=== PATIENT | female | born 1960 | race Two or more races ===

== ENCOUNTER 2020-04-03 13:29 | Inpatient (IN) | payer MEDICAID ==
[~2020-04-03] VITALS: Ht 149.9 cm; Wt 60.4 kg
--- NOTE | 2020-04-03 13:35 | Emergency Room Report ---
History of Present Illness General Chief Complaint: Chest Pain Source: Patient, EMS Present Illness HPI Patient is a poor historian brought in by paramedics. Apparently patient had not been feeling well has had chest discomfort for the last week or so. Patient also was noted to have an elevated glucose. Patient does not have any known past medical history. Symptoms noted to be moderate to severe. Patient denies any fever cough runny nose sore throat. No other modifying factors. No other associated signs and symptoms. No other complaints were noted. Allergies: Coded Allergies: No Known Allergies (Unverified , 04/03/20) COVID-19 Screening Contact w/high risk pt: No Experienced COVID-19 symptoms?: No COVID-19 Testing performed CUSTOMS GUARD: No Patient History Past Medical History: none Past Surgical History: none Pertinent Family History: none Social History: Denies: smoking, alcohol use, drug use Reviewed Nursing Documentation: PMH: Agreed; PSxH: Agreed Nursing Documentation-PMH Past Medical History: No Stated History Review of Systems All Other Systems: negative except mentioned in HPI Physical Exam Vital Signs Date Time Temp Pulse Resp B/P (MAP) Pulse Ox O2 Delivery O2 Flow Rate FiO2 04/03/20 13:20 98.8 123 20 174/97 (122) 98 Room Air Sp02 EP Interpretation: reviewed, normal General Appearance: normal inspection, well appearing, no apparent distress, alert Head: atraumatic Eyes: bilateral eye normal inspection ENT: normal ENT inspection, hearing grossly normal, normal voice Neck: normal inspection, full range of motion, supple, no bony tend Respiratory: normal inspection, lungs clear, normal breath sounds, no respiratory distress, no retraction, no wheezing Cardiovascular #1: regular rate, rhythm, no edema Gastrointestinal: normal inspection, normal bowel sounds, non tender, soft, no guarding, no hernia Genitourinary: no CVA tenderness Musculoskeletal: normal inspection, back normal, normal range of motion Neurologic: alert, responsive, speech normal, normal inspection Psychiatric: normal inspection, judgement/insight normal, mood/affect normal Medical Decision Making Diagnostic Impression: Primary Impression: Chest pain Additional Impression: Hyperglycemia ER Course Patient presents emergency department today with chest pain hyperglycemia. Differential considerations include acute coronary syndrome, DKA, electrolyte abnormality just name few. Given the severity of the patient's presentation I felt this is a highly complex patient. This patient required extensive workup. I will sign the case to oncoming physician Dr. Graham. EKG Diagnostic Results Rate: normal Rhythm: NSR ST Segments: no acute changes Rhythm Strip Diag. Results EP Interpretation: yes Rate: 102 Rhythm: NSR, no PVC's, no ectopy Last Vital Signs Date Time Temp Pulse Resp B/P (MAP) Pulse Ox O2 Delivery O2 Flow Rate FiO2 04/03/20 13:20 98.8 123 20 174/97 (122) 98 Room Air Allen Jack MD Apr 03, 2020 13:35
[2020-04-03 13:56] VITALS: BP 174/97
--- NOTE | 2020-04-03 14:09 | NUR ---
ED Nurse Note: Patient was BIBA from [facility] c/o left sided chest pain x [address] in 120s. Per stamp analyst 4 nitro SL and 325 mg aspirin PO given by LAFD. Patient presented calm sleepy, AAO x4, VS at this time.
--- NOTE | 2020-04-03 14:12 | NUR ---
ED Nurse Note: Patient presented with IV line on left forearm 20 ga, blood collected sent to lab
[2020-04-03 14:44] LABS: HEMATOCRIT 44.2 % (37.0-47.0); HEMOGLOBIN 14.5 G/DL (12.0-16.0); MEAN CORPUSCULAR VOLUME 88 FL (80-99); PLATELET COUNT 189 K/UL (150-450); RED BLOOD COUNT 5.03 M/UL (4.20-5.40); RED CELL DISTRIBUTION WIDTH 13.2 % (11.6-14.8); WHITE BLOOD COUNT 8.8 K/UL (4.8-10.8)
--- NOTE | 2020-04-03 14:56 | Diagnostic Imaging Report ---
Indication: Cough Technique: One view of the chest Comparison: none Findings: Lungs and pleural spaces are clear. Heart size is normal. Impression: No acute process
[2020-04-03 15:09] LABS: CALCIUM 9.2 MG/DL (8.5-10.1); CREATININE 1.4 MG/DL (0.55-1.30)
[2020-04-03 15:17] LABS: ALBUMIN 3.3 G/DL (3.4-5.0); ALBUMIN/GLOBULIN RATIO 1.2 (1.0-2.7); BILIRUBIN,TOTAL 0.4 MG/DL (0.2-1.0)
[2020-04-03] MEDS ORDERED: Insulin Reg 100 units Premix 100 ML IVPB SCH ×2 (16:00→17:00)
--- NOTE | 2020-04-03 16:04 | NUR ---
ED Nurse Note: Patient's BS 1069, ER MD aware fluids and Regular Insulin drip started. Patient appear lethargic, AAO x4, aii other VSS at this time.
[2020-04-03 16:06] VITALS: BP 135/80
[2020-04-03] MEDS ORDERED: Vancomycin 1 GM in NS 275 ML IVPB ONE (16:30)
[2020-04-03] MEDS ORDERED: Omnipaque-300 100ml vial INJ PRN (16:45)
[2020-04-03] MEDS ORDERED: LORazepam Inj 2mg/ml 1ml IV PRN (17:00)
[2020-04-03] MEDS ORDERED: Insulin Human Regular 100units/ml 3ml IV PRN ×2 (17:00)
[2020-04-03] MEDS ORDERED: Miralax 17gm pkt ORAL PRN (17:00)
[2020-04-03] MEDS ORDERED: Nitroglycerin Subl 0.4mg tab SL PRN (17:00)
[2020-04-03] MEDS ORDERED: Morphine Sulfate 4mg/ml Inj (IV USE ONLY) IVP PRN (17:00)
[2020-04-03] MEDS ORDERED: Insulin Rate Change 1 Each MISC PRN (17:00)
[2020-04-03] MEDS ORDERED: Albuterol/Ipratropium 3ml neb HHN PRN (17:00)
[2020-04-03 17:10] LABS: APPEARANCE,URINE CLEAR; BILIRUBIN, URINE NEGATIVE (NEGATIVE); COLOR,URINE PALE YELLOW; GLUCOSE, URINE (UA) 4+ (NEGATIVE); KETONES,URINE NEGATIVE (NEGATIVE); LEUKOCYTE ESTERASE ,URINE NEGATIVE (NEGATIVE); NITRITE,URINE NEGATIVE (NEGATIVE); PH,URINE 6.5 (4.5-8.0); PROTEIN,URINE NEGATIVE (NEGATIVE); UROBILINOGEN,URINE NORMAL MG/DL (0.0-1.0)
--- NOTE | 2020-04-03 17:15 | NUR ---
ED Nurse Note: BS 375. ED MD aware. He said to keep insulin @ 6 u/hr and recheck BS @ 9285
--- NOTE | 2020-04-03 17:30 | NUR ---
ED Nurse Note: BS 301. Per ED MD, keep insulin @ 6 u/hr
--- NOTE | 2020-04-03 17:34 | Diagnostic Imaging Report ---
EXAM: CT Abdomen and Pelvis With Intravenous Contrast CLINICAL HISTORY: Pelvic abscess. TECHNIQUE: Axial computed tomography images of the abdomen and pelvis with intravenous contrast. CTDI is 7.6 mGy and DLP is 293.4 mGy-cm. One or more of the following dose reduction techniques were used: automated exposure control, adjustment of the mA and/or kV according to patient size, use of iterative reconstruction technique. COMPARISON: No previous study. FINDINGS: Lung bases: Patchy airspace disease at the lung bases. Differential etiologies include atypical pneumonias versus atelectasis. Heart: Heart is top normal in size. Mediastinum: Small hiatal hernia probable distal esophagitis. ABDOMEN: Liver: Diffuse fatty infiltration of the liver is noted. The liver and the spleen enhance uniformly. Gallbladder and bile ducts: See below. Pancreas: See below. Spleen: See above. Adrenals: The adrenal glands, the head, body, tail of the pancreas and the gallbladder are unremarkable. Kidneys and ureters: Both kidneys are shown to excrete contrast bilaterally without renal calculus or hydronephrosis per Nonspecific stranding about the perinephric spaces. A 1 cm complex cyst upper pole region of the right kidney which requires further workup for evaluation. Stomach and bowel: The stomach is underdistended. Moderate quantity of stool throughout the colon. No evidence of bowel obstruction. The rectosigmoid is distended with stool measuring 10.6 x 11.8 x 8.2 cm compatible with fecal impaction. No mucosal thickening. PELVIS: Appendix: Appendix is seen on coronal images 20 and 21 and is unremarkable. Bladder: The bladder is distended. Reproductive: The uterus and adnexal regions are unremarkable. Uterus is unremarkable. ABDOMEN and PELVIS: Intraperitoneal space: Unremarkable. No free air. No significant fluid collection. Bones/joints: Acute nondisplaced fracture of the posterior lateral aspect of the left 10th rib. Moderate degenerative disc disease of the spinal:. Moderate to severe osteoarthritic changes about the sacroiliac joints. Alignment of the visualized track the lumbar spine is unremarkable. Sacrum and coccyx are grossly unremarkable. Soft tissues: Ischiorectal fat is clean. Inflammatory changes are noted about the left buttocks region, partially visualized, possibly on the basis of cellulitis. Vasculature: Flow is demonstrated within the celiac, SMA, the renal arteries, and FAVIAN. Atherosclerotic disease of the abdominal aorta without change in caliber. No abdominal aortic aneurysm. Lymph nodes: Unremarkable. No enlarged lymph nodes. Other findings: Probable areas of scarring. No compression deformities. IMPRESSION: 1. Small hiatal hernia probable distal esophagitis. 2. Atypical pneumonia such as Covid-19 pneumonia cannot be excluded. 3. The gallbladder is unremarkable. 4. Nonspecific stranding about the perinephric spaces. 5. Complex cyst upper pole region of the right kidney. Magnetic resonance imaging of the abdomen is advised for further characterization. 6. The appendix is unremarkable. 7. Moderate quantity of stool throughout the colon. 8. No evidence of bowel obstruction. 9. Findings compatible with fecal impaction. 10. Possible cellulitis about the left buttocks region. Clinical correlation is advised. <MYCVCSECTION> Communications: 04/03/20 17:35 Call Doctor Regarding Above results, called Dr. Graham on 04/03 17:35 (-07:00)
[2020-04-03 17:35] VITALS: BP 132/80
--- NOTE | 2020-04-03 18:00 | NUR ---
ED Nurse Note: BS 272. ED MD aware. He said to stop insulin drip. Drip on hold
[2020-04-03 18:43] VITALS: BP 138/80
--- NOTE | 2020-04-03 18:43 | NUR ---
ED Nurse Note: Patient was upgraded to TELE unit, pt's BS 207, no drip
--- NOTE | 2020-04-03 19:05 | NUR ---
HAND-OFF: Report given to JEREMY Urban.
--- NOTE | 2020-04-03 19:33 | NUR ---
ED Nurse Note: Spoke to laboratory, informed them that drug urine screen hasn't been run, informed that they will run it now.
--- NOTE | 2020-04-03 20:36 | NUR ---
ED Nurse Note: Report given to JEREMY Lawson.
--- NOTE | 2020-04-03 21:00 | NUR ---
TRANSFER TO FLOOR: Patient transferred to telemetry as ordered, per ERMD. Report given to JEREMY Lawson. Patient transported via gurney on ACLS protocol in stable condition accompanied by RN and medical office technology instructor.
[2020-04-03 21:15] VITALS: BP 117/66
--- NOTE | 2020-04-03 21:15 | NUR ---
NURSE NOTES: Pt received lying in supine position. Pt is alert x2-3, accurately said her name and date of and knows she is in [place] at a hospital. She thinks Morteza is president and said that she is here for a heart problem. It was reported that she had chest pain x 10 days but she was uncertain how long upper left chest. Pt is lying in bed with eyes closed and somewhat tired. She has some sores on her feet bilaterally, redness on sacrum and R buttocks. will upload plans of care to include protocol for wounds and wound consult per protocol. Bed is locked in lowest position, side rails x2, bed laarm on and call light within reach, will continue to monitor. will resume blood sugar checks since last BG was done in ED.
[2020-04-03] MEDS: Heparin 5000 units/ml inj SUBQ SCH (22:26)
[2020-04-04] VITALS: BP 110/66
[2020-04-04] MEDS ORDERED: NovoLOG Insulin Flexpen SUBQ SCH
--- NOTE | 2020-04-04 00:21 | NUR ---
NURSE NOTES: Dr Ly said to change sliding scale insulin to administer q 6 hours at midnight
[2020-04-04] MEDS: NovoLOG Insulin Flexpen SUBQ SCH ×6 (00:39→21:04)
[2020-04-04 04:00] VITALS: BP 105/68
[2020-04-04 06:58] LABS: INR 0.9 (0.9-1.1)
[2020-04-04 07:02] LABS: ANION GAP 9 mmol/L (5-15); BLOOD UREA NITROGEN 6 mg/dL (7-18); CALCIUM 8.4 MG/DL (8.5-10.1); CARBON DIOXIDE 25 MMOL/L (21-32); CHLORIDE 110 MMOL/L (98-107); CREATININE 0.5 MG/DL (0.55-1.30); POTASSIUM 3.6 MMOL/L (3.5-5.1); SODIUM 143 MMOL/L (136-145)
[2020-04-04 07:12] LABS: ALANINE AMINOTRANSFERASE 13 U/L (12-78); ALBUMIN 2.4 G/DL (3.4-5.0); ALKALINE PHOSPHATASE 97 U/L (46-116); ASPARTATE AMINO TRANSFERASE 13 U/L (15-37); BILIRUBIN,DIRECT < 0.1 MG/DL (0.0-0.3); BILIRUBIN,TOTAL 0.3 MG/DL (0.2-1.0); PHOSPHORUS 2.3 MG/DL (2.5-4.9)
[2020-04-04 08:00] VITALS: BP 118/68
--- NOTE | 2020-04-04 08:24 | NUR ---
NURSE HAND-OFF REPORT: Important Events on Shift: BG stabilized, changed to q 6 hours, specialists to see pt Patient Status: [stable, confused Diet: [npo] Pending Orders: [pt ptt hepatic function panel] Pending Results/Labs:[labs am] Pending MD notification: Latest Vital Signs: Temperature 99.0 , Pulse 58 , B/P 105 /68 , Respiratory Rate 18 , O2 SAT 96 , Room Air, O2 Flow Rate . Vital Sign Comment: [] EKG Rhythm: Sinus Bradycardia Rhythm change?: Y Notified?: N -Dr Malachi Saunders MD Response: No New Orders Received Latest Grajeda Fall Score: 45 Fall Risk: High Risk Safety Measures: Call light Within Reach, Bed Alarm Zone 1, Side Rails Side Rails x2, Bed position Low and Locked. Fall Precautions: Yellow Socks Yellow Gown Door Sign Patient Fall Education Report given to JEREMY Magana].
[2020-04-04] MEDS: Heparin 5000 units/ml inj SUBQ SCH ×2 (09:48→20:58)
--- NOTE | 2020-04-04 11:40 | NUR ---
NURSE NOTES: Skin/Wound assessment:Groin area has two abscess wounds.Distal abscess wound 11.3x1.4x0.2 with dry black eschar wound bed ,moist white edges with small amount serosanguineous drainage red induration kristal wound skin.Proximal abscess wound dry black eschar, moist edges with small amount serosanguineous drainage periwound also red induration noted.Both wounds dressed with Thera honey and Optifoam.Recommend wound consult spoke to RN taking care of the patient.All bony prominences skin intact.
--- NOTE | 2020-04-04 11:40 | Consultation ---
History of Present Illness General Date patient seen: Apr 04, 2020 Chief Complaint: Chest Pain Present Illness HPI 60 year old female with hhx of homelessness brought in by paramedics with CC of chest discomfort for the last week or so. Patient also was noted to have an elevated glucose. Patient does not have any known past medical history. Her Glucose was >1000 in ER. she is admitted for further management. Allergies: Coded Allergies: No Known Allergies (Unverified , 04/03/20) Medication History No Active Prescriptions or Reported Meds Patient History Healthcare decision maker Resuscitation status Advanced Directive on File Past Medical/Surgical History Past Medical/Surgical History: (1) Homelessness Review of Systems All Other Systems: negative except mentioned in HPI Physical Exam General Appearance: WD/WN, no apparent distress Lines, tubes and drains: peripheral HEENT: normocephalic, anicteric Neck: non-tender, normal alignment Respiratory/Chest: chest wall non-tender, lungs clear Cardiovascular/Chest: normal peripheral pulses Abdomen: normal bowel sounds Last 24 Hour Vital Signs Date Time Temp Pulse Resp B/P (MAP) Pulse Ox O2 Delivery O2 Flow Rate FiO2 04/04/20 08:00 97.5 56 18 118/68 (85) 95 04/04/20 04:00 61 04/04/20 04:00 99.0 58 18 105/68 (80) 96 04/04/20 00:00 54 04/04/20 00:00 99.0 56 18 110/66 (81) 95 04/03/20 22:09 Room Air 04/03/20 21:15 61 04/03/20 21:15 97.5 59 19 117/66 (83) 95 04/03/20 21:00 98.8 69 20 119/79 99 Room Air 04/03/20 18:43 98.8 67 18 138/80 98 Room Air 04/03/20 17:35 98.8 64 20 132/80 98 Room Air 04/03/20 16:06 98.8 69 20 135/80 98 Room Air 04/03/20 13:56 98.8 78 20 174/97 98 Room Air 04/03/20 13:56 123 20 Room Air 04/03/20 13:20 98.8 123 20 174/97 (122) 98 Room Air Intake and Output 04/03/20 04/04/20 19:00 07:00 Intake Total 0 ml Output Total 500 ml Balance -500 ml 0 ml Intake Oral 0 ml Output Urine Total 500 ml # Voids 1 Laboratory Tests Test 04/03/20 13:35 04/03/20 16:30 04/03/20 16:32 04/03/20 17:09 White Blood Count 8.8 K/UL (4.8-10.8) Red Blood Count 5.03 M/UL (4.20-5.40) Hemoglobin 14.5 G/DL (12.0-16.0) Hematocrit 44.2 % (37.0-47.0) Mean Corpuscular Volume 88 FL (80-99) Mean Corpuscular Hemoglobin 28.8 PG (27.0-31.0) Mean Corpuscular Hemoglobin Concent 32.8 G/DL (32.0-36.0) Red Cell Distribution Width 13.2 % (11.6-14.8) Platelet Count 189 K/UL (150-450) Mean Platelet Volume 8.9 FL (6.5-10.1) Neutrophils (%) (Auto) % (45.0-75.0) Lymphocytes (%) (Auto) % (20.0-45.0) Monocytes (%) (Auto) % (1.0-10.0) Eosinophils (%) (Auto) % (0.0-3.0) Basophils (%) (Auto) % (0.0-2.0) Differential Total Cells Counted 100 Neutrophils % (Manual) 88 % (45-75) H Lymphocytes % (Manual) 6 % (20-45) L Monocytes % (Manual) 6 % (1-10) Eosinophils % (Manual) 0 % (0-3) Basophils % (Manual) 0 % (0-2) Band Neutrophils 0 % (0-8) Platelet Estimate Adequate Platelet Morphology Normal Red Blood Cell Morphology Normal Sodium Level 128 MMOL/L (136-145) L Potassium Level 5.0 MMOL/L (3.5-5.1) Chloride Level 92 MMOL/L (98-107) L Carbon Dioxide Level 21 MMOL/L (21-32) Anion Gap 15 mmol/L (5-15) Blood Urea Nitrogen 13 mg/dL (7-18) Creatinine 1.4 MG/DL (0.55-1.30) H Estimat Glomerular Filtration Rate 38.5 mL/min (>60) Glucose Level 1069 MG/DL (74-106) *H Osmolality 327 mOsm/kg (297-317) H Calcium Level 9.2 MG/DL (8.5-10.1) Total Bilirubin 0.4 MG/DL (0.2-1.0) Aspartate Amino Transf (AST/SGOT) 12 U/L (15-37) L Alanine Aminotransferase (ALT/SGPT) 16 U/L (12-78) Alkaline Phosphatase 145 U/L (46-116) H Troponin I 0.000 ng/mL (0.000-0.056) Pro-B-Type Natriuretic Peptide 57 pg/mL (0-125) Total Protein 6.1 G/DL (6.4-8.2) L Albumin 3.3 G/DL (3.4-5.0) L Globulin 2.8 g/dL Albumin/Globulin Ratio 1.2 (1.0-2.7) Lipase 244 U/L (73-393) Acetone Level Negative (NEGATIVE) Urine Color Pale yellow Urine Appearance Clear Urine pH 6.5 (4.5-8.0) Urine Specific [place] 1.010 (1.005-1.035) Urine Protein Negative (NEGATIVE) Urine Glucose (UA) 4+ (NEGATIVE) H Urine Ketones Negative (NEGATIVE) Urine Blood Negative (NEGATIVE) Urine Nitrite Negative (NEGATIVE) Urine Bilirubin Negative (NEGATIVE) Urine Urobilinogen Normal MG/DL (0.0-1.0) Urine Leukocyte Esterase Negative (NEGATIVE) Urine Opiates Screen Negative (NEGATIVE) Urine Barbiturates Screen Negative (NEGATIVE) Phencyclidine (PCP) Screen Negative (NEGATIVE) Urine Amphetamines Screen Negative (NEGATIVE) Urine Benzodiazepines Screen Negative (NEGATIVE) Urine Cocaine Screen Negative (NEGATIVE) Urine Marijuana (THC) Screen Negative (NEGATIVE) POC Whole Blood Glucose 375 MG/DL (74-106) H Test 04/03/20 17:30 04/03/20 17:44 04/03/20 18:02 04/03/20 19:18 POC Whole Blood Glucose 301 MG/DL (74-106) H 227 MG/DL (74-106) H 196 MG/DL (74-106) H Venous Blood pH 7.300 Venous Blood Partial Pressure CO2 48.7 Venous Blood Partial Pressure O2 33.1 Venous Blood HCO3 23.4 Venous Blood Total Carbon Dioxide 48.7 Venous Blood Base Excess -3.4 Venous Blood Carboxyhemoglobin 1.8 % (0.5-1.5) H Methemoglobin 0.2 Test 04/03/20 22:03 04/04/20 00:24 04/04/20 05:50 04/04/20 06:12 POC Whole Blood Glucose 247 MG/DL (74-106) H 292 MG/DL (74-106) H 139 MG/DL (74-106) H Prothrombin Time 10.3 SEC (9.30-11.50) Prothromb Time International Ratio 0.9 (0.9-1.1) Activated Partial Thromboplast Time 24 SEC (23-33) Sodium Level 143 MMOL/L (136-145) # Potassium Level 3.6 MMOL/L (3.5-5.1) Chloride Level 110 MMOL/L (98-107) H Carbon Dioxide Level 25 MMOL/L (21-32) Anion Gap 9 mmol/L (5-15) Blood Urea Nitrogen 6 mg/dL (7-18) L Creatinine 0.5 MG/DL (0.55-1.30) #L Estimat Glomerular Filtration Rate > 60 mL/min (>60) Glucose Level 153 MG/DL (74-106) #H Calcium Level 8.4 MG/DL (8.5-10.1) L Phosphorus Level 2.3 MG/DL (2.5-4.9) L Total Bilirubin 0.3 MG/DL (0.2-1.0) Direct Bilirubin < 0.1 MG/DL (0.0-0.3) Aspartate Amino Transf (AST/SGOT) 13 U/L (15-37) L Alanine Aminotransferase (ALT/SGPT) 13 U/L (12-78) Alkaline Phosphatase 97 U/L (46-116) Total Protein 4.6 G/DL (6.4-8.2) L Albumin 2.4 G/DL (3.4-5.0) L Test 04/04/20 09:03 POC Whole Blood Glucose Pending Microbiology Date/Time Source Procedure Growth Status 04/03/20 14:34 Nasopharynx SARS-CoV-2 RdRp Gene Assay - Final Complete Height (Feet): 4 Height (Inches): 11.00 Weight (Pounds): 122 Medications Current Medications Medications (Trade) Dose Ordered Sig/Nathan Route PRN Reason Start Time Stop Time Status Last Admin Dose Admin Acetaminophen (Tylenol) 650 mg Q4H PRN ORAL Fever 04/03/20 17:00 05/03/20 16:59 Albuterol/ Ipratropium (Albuterol/ Ipratropium) 3 ml Q4H PRN HHN Shortness of Breath 04/03/20 17:00 04/08/20 16:59 Dextrose (Dextrose 50%) 25 ml Q30M PRN IV HYPOGLYCEMIA 04/03/20 17:00 07/02/20 16:59 Dextrose (Dextrose 50%) 50 ml Q30M PRN IV Hypoglycemia 04/03/20 17:00 07/02/20 16:59 Heparin Sodium (Porcine) (Heparin 5000 units/ml) 5,000 units EVERY 12 HOURS SUBQ 04/03/20 21:00 05/18/20 20:59 04/04/20 09:48 Insulin Aspart (NovoLOG) Q4HR SUBQ 04/04/20 00:00 07/03/20 00:00 04/04/20 00:39 Iohexol (OMNIPAQUE-300 100ml) 100 ml NOW PRN INJ Radiology Procedure 04/03/20 16:45 04/05/20 16:44 Lorazepam (Ativan 2mg/ml 1ml) 2 mg Q2H PRN IV agitation 04/03/20 17:00 04/10/20 16:59 Morphine Sulfate (Morphine Sulfate) 4 mg Q4H PRN IVP Severe Pain (Pain Scale 7-10) 04/03/20 17:00 04/10/20 16:59 Nitroglycerin (Ntg) 0.4 mg Q5M PRN SL Prn Chest Pain 04/03/20 17:00 05/03/20 16:59 Ondansetron HCl (Zofran) 4 mg Q6H PRN IVP Nausea & Vomiting 04/03/20 17:00 05/03/20 16:59 Polyethylene Glycol (Miralax) 17 gm DAILYPRN PRN ORAL Constipation 04/03/20 17:00 05/03/20 16:59 Sodium Chloride 1,000 ml @ 150 mls/hr Q6H40M IV 04/03/20 18:00 05/03/20 17:59 04/04/20 06:54 Assessment/Plan Problem List: (1) Hyperglycemia ICD Codes: R73.9 - Hyperglycemia, unspecified SNOMED: 20410598 (2) Chest pain ICD Codes: R07.9 - Chest pain, unspecified SNOMED: 38192021 (3) Homelessness ICD Codes: Z59.0 - Homelessness SNOMED: 49178482 Assessment/Plan: iv fluids insulin coverage echo troponin cardio and endo to see social service for homelessness. Angeline Saunders MD Apr 04, 2020 11:40
[2020-04-04 12:00] VITALS: BP 126/73
--- NOTE | 2020-04-04 12:10 | Consultation ---
History of Present Illness General Date patient seen: Apr 04, 2020 Reason for Hospitalization: Chest Pain Present Illness HPI This is a 50-year-old female who is unsure of her medical history that presents with worsening weakness and discomfort for some time now. In emergency departm ent identified to have abnormal labs DKA and cellulitis. Admitted for the care management. Surgery called to eval and assist with care. Patient identified to have cellulitis with wounds in the pelvic region. Unsure how long they have been there. No nausea vomiting fever chills. Imaging reviewed CT reviewed labs reviewed. Fecal impaction constipation. Allergies: Coded Allergies: No Known Allergies (Unverified , 04/03/20) COVID-19 Screening Contact w/high risk pt: No Experienced COVID-19 symptoms?: No Medication History No Active Prescriptions or Reported Meds Patient History Limited by: medical condition History Provided By: Patient, Medical Record, PMD Healthcare decision maker Resuscitation status Advanced Directive on File Past Medical/Surgical History Past Medical/Surgical History: (1) Chest pain (2) Hyperglycemia (3) History of diabetes mellitus Review of Systems Review of Symptoms General ROS: no weight loss or fever Psychological ROS: no depression or mood changes, no memory loss Ophthalmic ROS: no visual changes or eye irritation ENT ROS: no nasal congestion, hearing loss, dizziness Allergy and Immunology ROS: no allergic symptoms or urticaria Hematological and Lymphatic ROS: no swollen glands, unusual bleeding or bruising Endocrine ROS: no polyuria, polydipsia, weight changes, temperature intolerance Respiratory ROS: no cough, shortness of breath, or wheezing Cardiovascular ROS: no chest pain or dyspnea on exertion Gastrointestinal ROS: denies abdominal pain, bright red blood in stool. Musculoskeletal ROS: no myalgias or arthralgias Neurological ROS: no TIA or stroke symptoms Dermatological ROS: no new or changing skin lesions, rashes or pruritis Physical Exam Physical Exam General appearance: alert, cooperative, no distress, appears stated age Head: Normocephalic, without obvious abnormality, atraumatic Eyes: conjunctivae/corneas clear. PERRL, EOM's intact. Fundi benign Throat: Lips, mucosa, and tongue normal. Teeth and gums normal Neck: supple, symmetrical, trachea midline, no adenopathy, thyroid: not enlarged, symmetric, no tenderness/mass/nodules, no carotid bruit and no JVD Lungs: clear to auscultation bilaterally Heart: regular rate and rhythm, S1, S2 normal, no murmur, click, rub or gallop Abdomen: soft, non-tender. Bowel sounds normal. No masses, no organomegaly cellulitis in the pelvic region Extremities: extremities normal, atraumatic, no cyanosis or edema Pulses: 2+ and symmetric Skin: Skin color, texture, turgor normal. No rashes or lesions Neurologic: Grossly normal Last 24 Hour Vital Signs Date Time Temp Pulse Resp B/P (MAP) Pulse Ox O2 Delivery O2 Flow Rate FiO2 04/04/20 08:00 97.5 56 18 118/68 (85) 95 04/04/20 08:00 58 04/04/20 04:00 61 04/04/20 04:00 99.0 58 18 105/68 (80) 96 04/04/20 00:00 54 04/04/20 00:00 99.0 56 18 110/66 (81) 95 04/03/20 22:09 Room Air 04/03/20 21:15 61 04/03/20 21:15 97.5 59 19 117/66 (83) 95 04/03/20 21:00 98.8 69 20 119/79 99 Room Air 04/03/20 18:43 98.8 67 18 138/80 98 Room Air 04/03/20 17:35 98.8 64 20 132/80 98 Room Air 04/03/20 16:06 98.8 69 20 135/80 98 Room Air 04/03/20 13:56 98.8 78 20 174/97 98 Room Air 04/03/20 13:56 123 20 Room Air 04/03/20 13:20 98.8 123 20 174/97 (122) 98 Room Air Intake and Output 04/03/20 04/04/20 19:00 07:00 Intake Total 0 ml Output Total 500 ml Balance -500 ml 0 ml Intake Oral 0 ml Output Urine Total 500 ml # Voids 1 Laboratory Tests Test 04/03/20 13:35 04/03/20 16:30 04/03/20 16:32 04/03/20 17:09 White Blood Count 8.8 K/UL (4.8-10.8) Red Blood Count 5.03 M/UL (4.20-5.40) Hemoglobin 14.5 G/DL (12.0-16.0) Hematocrit 44.2 % (37.0-47.0) Mean Corpuscular Volume 88 FL (80-99) Mean Corpuscular Hemoglobin 28.8 PG (27.0-31.0) Mean Corpuscular Hemoglobin Concent 32.8 G/DL (32.0-36.0) Red Cell Distribution Width 13.2 % (11.6-14.8) Platelet Count 189 K/UL (150-450) Mean Platelet Volume 8.9 FL (6.5-10.1) Neutrophils (%) (Auto) % (45.0-75.0) Lymphocytes (%) (Auto) % (20.0-45.0) Monocytes (%) (Auto) % (1.0-10.0) Eosinophils (%) (Auto) % (0.0-3.0) Basophils (%) (Auto) % (0.0-2.0) Differential Total Cells Counted 100 Neutrophils % (Manual) 88 % (45-75) H Lymphocytes % (Manual) 6 % (20-45) L Monocytes % (Manual) 6 % (1-10) Eosinophils % (Manual) 0 % (0-3) Basophils % (Manual) 0 % (0-2) Band Neutrophils 0 % (0-8) Platelet Estimate Adequate Platelet Morphology Normal Red Blood Cell Morphology Normal Sodium Level 128 MMOL/L (136-145) L Potassium Level 5.0 MMOL/L (3.5-5.1) Chloride Level 92 MMOL/L (98-107) L Carbon Dioxide Level 21 MMOL/L (21-32) Anion Gap 15 mmol/L (5-15) Blood Urea Nitrogen 13 mg/dL (7-18) Creatinine 1.4 MG/DL (0.55-1.30) H Estimat Glomerular Filtration Rate 38.5 mL/min (>60) Glucose Level 1069 MG/DL (74-106) *H Osmolality 327 mOsm/kg (297-317) H Calcium Level 9.2 MG/DL (8.5-10.1) Total Bilirubin 0.4 MG/DL (0.2-1.0) Aspartate Amino Transf (AST/SGOT) 12 U/L (15-37) L Alanine Aminotransferase (ALT/SGPT) 16 U/L (12-78) Alkaline Phosphatase 145 U/L (46-116) H Troponin I 0.000 ng/mL (0.000-0.056) Pro-B-Type Natriuretic Peptide 57 pg/mL (0-125) Total Protein 6.1 G/DL (6.4-8.2) L Albumin 3.3 G/DL (3.4-5.0) L Globulin 2.8 g/dL Albumin/Globulin Ratio 1.2 (1.0-2.7) Lipase 244 U/L (73-393) Acetone Level Negative (NEGATIVE) Urine Color Pale yellow Urine Appearance Clear Urine pH 6.5 (4.5-8.0) Urine Specific [place] 1.010 (1.005-1.035) Urine Protein Negative (NEGATIVE) Urine Glucose (UA) 4+ (NEGATIVE) H Urine Ketones Negative (NEGATIVE) Urine Blood Negative (NEGATIVE) Urine Nitrite Negative (NEGATIVE) Urine Bilirubin Negative (NEGATIVE) Urine Urobilinogen Normal MG/DL (0.0-1.0) Urine Leukocyte Esterase Negative (NEGATIVE) Urine Opiates Screen Negative (NEGATIVE) Urine Barbiturates Screen Negative (NEGATIVE) Phencyclidine (PCP) Screen Negative (NEGATIVE) Urine Amphetamines Screen Negative (NEGATIVE) Urine Benzodiazepines Screen Negative (NEGATIVE) Urine Cocaine Screen Negative (NEGATIVE) Urine Marijuana (THC) Screen Negative (NEGATIVE) POC Whole Blood Glucose 375 MG/DL (74-106) H Test 04/03/20 17:30 04/03/20 17:44 04/03/20 18:02 04/03/20 19:18 POC Whole Blood Glucose 301 MG/DL (74-106) H 227 MG/DL (74-106) H 196 MG/DL (74-106) H Venous Blood pH 7.300 Venous Blood Partial Pressure CO2 48.7 Venous Blood Partial Pressure O2 33.1 Venous Blood HCO3 23.4 Venous Blood Total Carbon Dioxide 48.7 Venous Blood Base Excess -3.4 Venous Blood Carboxyhemoglobin 1.8 % (0.5-1.5) H Methemoglobin 0.2 Test 04/03/20 22:03 04/04/20 00:24 04/04/20 05:50 04/04/20 06:12 POC Whole Blood Glucose 247 MG/DL (74-106) H 292 MG/DL (74-106) H 139 MG/DL (74-106) H Prothrombin Time 10.3 SEC (9.30-11.50) Prothromb Time International Ratio 0.9 (0.9-1.1) Activated Partial Thromboplast Time 24 SEC (23-33) Sodium Level 143 MMOL/L (136-145) # Potassium Level 3.6 MMOL/L (3.5-5.1) Chloride Level 110 MMOL/L (98-107) H Carbon Dioxide Level 25 MMOL/L (21-32) Anion Gap 9 mmol/L (5-15) Blood Urea Nitrogen 6 mg/dL (7-18) L Creatinine 0.5 MG/DL (0.55-1.30) #L Estimat Glomerular Filtration Rate > 60 mL/min (>60) Glucose Level 153 MG/DL (74-106) #H Calcium Level 8.4 MG/DL (8.5-10.1) L Phosphorus Level 2.3 MG/DL (2.5-4.9) L Total Bilirubin 0.3 MG/DL (0.2-1.0) Direct Bilirubin < 0.1 MG/DL (0.0-0.3) Aspartate Amino Transf (AST/SGOT) 13 U/L (15-37) L Alanine Aminotransferase (ALT/SGPT) 13 U/L (12-78) Alkaline Phosphatase 97 U/L (46-116) Total Protein 4.6 G/DL (6.4-8.2) L Albumin 2.4 G/DL (3.4-5.0) L Test 04/04/20 09:03 04/04/20 11:52 POC Whole Blood Glucose Pending 232 MG/DL (74-106) H Microbiology Date/Time Source Procedure Growth Status 04/03/20 14:34 Nasopharynx SARS-CoV-2 RdRp Gene Assay - Final Complete Height (Feet): 4 Height (Inches): 11.00 Weight (Pounds): 122 Medications Current Medications Medications (Trade) Dose Ordered Sig/Nathan Route PRN Reason Start Time Stop Time Status Last Admin Dose Admin Acetaminophen (Tylenol) 650 mg Q4H PRN ORAL Fever 04/03/20 17:00 05/03/20 16:59 Albuterol/ Ipratropium (Albuterol/ Ipratropium) 3 ml Q4H PRN HHN Shortness of Breath 04/03/20 17:00 04/08/20 16:59 Dextrose (Dextrose 50%) 25 ml Q30M PRN IV HYPOGLYCEMIA 04/03/20 17:00 07/02/20 16:59 Dextrose (Dextrose 50%) 50 ml Q30M PRN IV Hypoglycemia 04/03/20 17:00 07/02/20 16:59 Heparin Sodium (Porcine) (Heparin 5000 units/ml) 5,000 units EVERY 12 HOURS SUBQ 04/03/20 21:00 05/18/20 20:59 04/04/20 09:48 Insulin Aspart (NovoLOG) Q4HR SUBQ 04/04/20 00:00 07/03/20 00:00 04/04/20 00:39 Iohexol (OMNIPAQUE-300 100ml) 100 ml NOW PRN INJ Radiology Procedure 04/03/20 16:45 04/05/20 16:44 Lorazepam (Ativan 2mg/ml 1ml) 2 mg Q2H PRN IV agitation 04/03/20 17:00 04/10/20 16:59 Morphine Sulfate (Morphine Sulfate) 4 mg Q4H PRN IVP Severe Pain (Pain Scale 7-10) 04/03/20 17:00 04/10/20 16:59 Nitroglycerin (Ntg) 0.4 mg Q5M PRN SL Prn Chest Pain 04/03/20 17:00 05/03/20 16:59 Ondansetron HCl (Zofran) 4 mg Q6H PRN IVP Nausea & Vomiting 04/03/20 17:00 05/03/20 16:59 Polyethylene Glycol (Miralax) 17 gm DAILYPRN PRN ORAL Constipation 04/03/20 17:00 05/03/20 16:59 Assessment/Plan Problem List: (1) Pelvic cellulitis in female Assessment & Plan: Groin area has two abscess wounds with cellulitis. Distal wound cellulitis 11.3x1.4x0.2 with dry black eschar at apex of wound bed, moist white edges with small amount serosanguineous drainage red induration kristal wound skin. Proximal abscess wound dry black eschar, moist edges with small amount serosanguineous drainage periwound also red induration noted. Both wounds dressed with Thera honey and Optifoam. CT reviewed no fluid collection noted likely prior abscess now with cellulitis and wound cont abx local wound care as above bowel care will follow with eaxm and recs Liver: Diffuse fatty infiltration of the liver is noted. The liver and the spleen enhance uniformly. Gallbladder and bile ducts: See below. Pancreas: See below. Spleen: See above. Adrenals: The adrenal glands, the head, body, tail of the pancreas and the gallbladder are unremarkable. Kidneys and ureters: Both kidneys are shown to excrete contrast bilaterally without renal calculus or hydronephrosis per Nonspecific stranding about the perinephric spaces. A 1 cm complex cyst upper pole region of the right kidney which requires further workup for evaluation. Stomach and bowel: The stomach is underdistended. Moderate quantity of stool throughout the colon. No evidence of bowel obstruction. The rectosigmoid is distended with stool measuring 10.6 x 11.8 x 8.2 cm compatible with fecal impaction. No mucosal thickening. PELVIS: Appendix: Appendix is seen on coronal images 20 and 21 and is unremarkable. Bladder: The bladder is distended. Reproductive: The uterus and adnexal regions are unremarkable. Uterus is unremarkable. ABDOMEN and PELVIS: Intraperitoneal space: Unremarkable. No free air. No significant fluid collection. Bones/joints: Acute nondisplaced fracture of the posterior lateral aspect of the left 10th rib. Moderate degenerative disc disease of the spinal:. Moderate to severe osteoarthritic changes about the sacroiliac joints. Alignment of the visualized track the lumbar spine is unremarkable. Sacrum and coccyx are grossly unremarkable. Soft tissues: Ischiorectal fat is clean. Inflammatory changes are noted about the left buttocks region, partially visualized, possibly on the basis of cellulitis. Vasculature: Flow is demonstrated within the celiac, SMA, the renal arteries, and FAVIAN. Atherosclerotic disease of the abdominal aorta without change in caliber. No abdominal aortic aneurysm. Lymph nodes: Unremarkable. No enlarged lymph nodes. Other findings: Probable areas of scarring. No compression deformities. IMPRESSION: 1. Small hiatal hernia probable distal esophagitis. 2. Atypical pneumonia such as Covid-19 pneumonia cannot be excluded. 3. The gallbladder is unremarkable. 4. Nonspecific stranding about the perinephric spaces. 5. Complex cyst upper pole region of the right kidney. Magnetic resonance imaging of the abdomen is advised for further characterization. 6. The appendix is unremarkable. 7. Moderate quantity of stool throughout the colon. 8. No evidence of bowel obstruction. 9. Findings compatible with fecal impaction. 10. Possible cellulitis about the left buttocks region. Clinical ICD Codes: N73.2 - Unspecified parametritis and pelvic cellulitis SNOMED: 886038394 (2) Chest pain ICD Codes: R07.9 - Chest pain, unspecified SNOMED: 03166610 (3) Hyperglycemia ICD Codes: R73.9 - Hyperglycemia, unspecified SNOMED: 93345425 (4) History of diabetes mellitus ICD Codes: Z86.39 - Personal history of other endocrine, nutritional and metabolic disease SNOMED: 652984288 Eduardo Pena Apr 04, 2020 12:10
--- NOTE | 2020-04-04 13:27 | NUR ---
CASE MANAGEMENT: REVIEW 60 YO F EVITA FROM [facility] C/O LEFT SIDED CP PMHx; No Stated History SI;HYPEROSMOTIC HYPERGLYCEMIC STATE VS: T 98.8 HR 123 RR 20 B/P 174/97 SATS 98% ON RA LABS: NA 128 CL 92 CR 1.4 GLU 1069 AST 12 ALP 145 VGB CARBOXYHEMOGLOBIN 1.8 IS: NS BOLUS X1 PATIENT ADMITTED TO TELE 04/03/2020 @ 1445 DCP: TBD PLAN OF CARE : 2D ECHO SSW CONSULT CONCURRENT REVIEW 04/04/2020 SI:HYPEROSMOTIC HYPERGLYCEMIC STATE VS: T 98.8 HR 123 RR 20 B/P 174/97 SATS 98% ON RA LABS: NA 143 CL 110 BUN 6 CR 0.5 GLU 153 CA 8.4 PHOS 2.3 AST 13 IS:INSULIN ASPART SUBQ Q4H TELE DCP: TBD PLAN OF CARE: iv fluids insulin coverage echo troponin cardio and endo to see
--- NOTE | 2020-04-04 13:36 | Consultation ---
History of Present Illness General Chief Complaint: Chest Pain Reason for Consultation: Cellulitis Present Illness HPI Ms. Michelle is a 60 yo female who presented to ED with DKA and cellulitis. The patient had some lower pelvic lesions that she has been present for about a week . Stable not getting worse. No fever, Chills, N/V/D or abd pain. She is afebrile with no leukocytosis. ID was consulted for cellultis PMHx/PSHx Homelessness SocHx No E/T/D FAMHx Not contributory Allergies: Coded Allergies: No Known Allergies (Unverified , 04/03/20) Medication History No Active Prescriptions or Reported Meds Patient History Healthcare decision maker Resuscitation status Advanced Directive on File Review of Systems ROS Narrative 12 point ROS negative Except as noted in the HPI Physical Exam Last 24 Hour Vital Signs Date Time Temp Pulse Resp B/P (MAP) Pulse Ox O2 Delivery O2 Flow Rate FiO2 04/04/20 12:00 58 04/04/20 12:00 97.5 61 20 126/73 (90) 96 04/04/20 09:00 Room Air 04/04/20 08:00 97.5 56 18 118/68 (85) 95 04/04/20 08:00 58 04/04/20 04:00 61 04/04/20 04:00 99.0 58 18 105/68 (80) 96 04/04/20 00:00 54 04/04/20 00:00 99.0 56 18 110/66 (81) 95 04/03/20 22:09 Room Air 04/03/20 21:15 61 04/03/20 21:15 97.5 59 19 117/66 (83) 95 04/03/20 21:00 98.8 69 20 119/79 99 Room Air 04/03/20 18:43 98.8 67 18 138/80 98 Room Air 04/03/20 17:35 98.8 64 20 132/80 98 Room Air 04/03/20 16:06 98.8 69 20 135/80 98 Room Air 04/03/20 13:56 98.8 78 20 174/97 98 Room Air 04/03/20 13:56 123 20 Room Air Intake and Output 04/03/20 04/04/20 19:00 07:00 Intake Total 0 ml Output Total 500 ml Balance -500 ml 0 ml Intake Oral 0 ml Output Urine Total 500 ml # Voids 1 Laboratory Tests Test 04/03/20 13:35 04/03/20 16:30 04/03/20 16:32 04/03/20 17:09 White Blood Count 8.8 K/UL (4.8-10.8) Red Blood Count 5.03 M/UL (4.20-5.40) Hemoglobin 14.5 G/DL (12.0-16.0) Hematocrit 44.2 % (37.0-47.0) Mean Corpuscular Volume 88 FL (80-99) Mean Corpuscular Hemoglobin 28.8 PG (27.0-31.0) Mean Corpuscular Hemoglobin Concent 32.8 G/DL (32.0-36.0) Red Cell Distribution Width 13.2 % (11.6-14.8) Platelet Count 189 K/UL (150-450) Mean Platelet Volume 8.9 FL (6.5-10.1) Neutrophils (%) (Auto) % (45.0-75.0) Lymphocytes (%) (Auto) % (20.0-45.0) Monocytes (%) (Auto) % (1.0-10.0) Eosinophils (%) (Auto) % (0.0-3.0) Basophils (%) (Auto) % (0.0-2.0) Differential Total Cells Counted 100 Neutrophils % (Manual) 88 % (45-75) H Lymphocytes % (Manual) 6 % (20-45) L Monocytes % (Manual) 6 % (1-10) Eosinophils % (Manual) 0 % (0-3) Basophils % (Manual) 0 % (0-2) Band Neutrophils 0 % (0-8) Platelet Estimate Adequate Platelet Morphology Normal Red Blood Cell Morphology Normal Sodium Level 128 MMOL/L (136-145) L Potassium Level 5.0 MMOL/L (3.5-5.1) Chloride Level 92 MMOL/L (98-107) L Carbon Dioxide Level 21 MMOL/L (21-32) Anion Gap 15 mmol/L (5-15) Blood Urea Nitrogen 13 mg/dL (7-18) Creatinine 1.4 MG/DL (0.55-1.30) H Estimat Glomerular Filtration Rate 38.5 mL/min (>60) Glucose Level 1069 MG/DL (74-106) *H Osmolality 327 mOsm/kg (297-317) H Calcium Level 9.2 MG/DL (8.5-10.1) Total Bilirubin 0.4 MG/DL (0.2-1.0) Aspartate Amino Transf (AST/SGOT) 12 U/L (15-37) L Alanine Aminotransferase (ALT/SGPT) 16 U/L (12-78) Alkaline Phosphatase 145 U/L (46-116) H Troponin I 0.000 ng/mL (0.000-0.056) Pro-B-Type Natriuretic Peptide 57 pg/mL (0-125) Total Protein 6.1 G/DL (6.4-8.2) L Albumin 3.3 G/DL (3.4-5.0) L Globulin 2.8 g/dL Albumin/Globulin Ratio 1.2 (1.0-2.7) Lipase 244 U/L (73-393) Acetone Level Negative (NEGATIVE) Urine Color Pale yellow Urine Appearance Clear Urine pH 6.5 (4.5-8.0) Urine Specific [place] 1.010 (1.005-1.035) Urine Protein Negative (NEGATIVE) Urine Glucose (UA) 4+ (NEGATIVE) H Urine Ketones Negative (NEGATIVE) Urine Blood Negative (NEGATIVE) Urine Nitrite Negative (NEGATIVE) Urine Bilirubin Negative (NEGATIVE) Urine Urobilinogen Normal MG/DL (0.0-1.0) Urine Leukocyte Esterase Negative (NEGATIVE) Urine Opiates Screen Negative (NEGATIVE) Urine Barbiturates Screen Negative (NEGATIVE) Phencyclidine (PCP) Screen Negative (NEGATIVE) Urine Amphetamines Screen Negative (NEGATIVE) Urine Benzodiazepines Screen Negative (NEGATIVE) Urine Cocaine Screen Negative (NEGATIVE) Urine Marijuana (THC) Screen Negative (NEGATIVE) POC Whole Blood Glucose 375 MG/DL (74-106) H Test 04/03/20 17:30 04/03/20 17:44 04/03/20 18:02 04/03/20 19:18 POC Whole Blood Glucose 301 MG/DL (74-106) H 227 MG/DL (74-106) H 196 MG/DL (74-106) H Venous Blood pH 7.300 Venous Blood Partial Pressure CO2 48.7 Venous Blood Partial Pressure O2 33.1 Venous Blood HCO3 23.4 Venous Blood Total Carbon Dioxide 48.7 Venous Blood Base Excess -3.4 Venous Blood Carboxyhemoglobin 1.8 % (0.5-1.5) H Methemoglobin 0.2 Test 04/03/20 22:03 04/04/20 00:24 04/04/20 05:50 04/04/20 06:12 POC Whole Blood Glucose 247 MG/DL (74-106) H 292 MG/DL (74-106) H 139 MG/DL (74-106) H Prothrombin Time 10.3 SEC (9.30-11.50) Prothromb Time International Ratio 0.9 (0.9-1.1) Activated Partial Thromboplast Time 24 SEC (23-33) Sodium Level 143 MMOL/L (136-145) # Potassium Level 3.6 MMOL/L (3.5-5.1) Chloride Level 110 MMOL/L (98-107) H Carbon Dioxide Level 25 MMOL/L (21-32) Anion Gap 9 mmol/L (5-15) Blood Urea Nitrogen 6 mg/dL (7-18) L Creatinine 0.5 MG/DL (0.55-1.30) #L Estimat Glomerular Filtration Rate > 60 mL/min (>60) Glucose Level 153 MG/DL (74-106) #H Calcium Level 8.4 MG/DL (8.5-10.1) L Phosphorus Level 2.3 MG/DL (2.5-4.9) L Total Bilirubin 0.3 MG/DL (0.2-1.0) Direct Bilirubin < 0.1 MG/DL (0.0-0.3) Aspartate Amino Transf (AST/SGOT) 13 U/L (15-37) L Alanine Aminotransferase (ALT/SGPT) 13 U/L (12-78) Alkaline Phosphatase 97 U/L (46-116) Total Protein 4.6 G/DL (6.4-8.2) L Albumin 2.4 G/DL (3.4-5.0) L Test 04/04/20 09:03 04/04/20 11:52 POC Whole Blood Glucose Pending 232 MG/DL (74-106) H Microbiology Date/Time Source Procedure Growth Status 04/03/20 14:34 Nasopharynx SARS-CoV-2 RdRp Gene Assay - Final Complete Height (Feet): 4 Height (Inches): 11.00 Weight (Pounds): 122 Medications Current Medications Medications (Trade) Dose Ordered Sig/Nathan Route PRN Reason Start Time Stop Time Status Last Admin Dose Admin Acetaminophen (Tylenol) 650 mg Q4H PRN ORAL Fever 04/03/20 17:00 05/03/20 16:59 Albuterol/ Ipratropium (Albuterol/ Ipratropium) 3 ml Q4H PRN HHN Shortness of Breath 04/03/20 17:00 04/08/20 16:59 Dextrose (Dextrose 50%) 25 ml Q30M PRN IV HYPOGLYCEMIA 04/03/20 17:00 07/02/20 16:59 Dextrose (Dextrose 50%) 50 ml Q30M PRN IV Hypoglycemia 04/03/20 17:00 07/02/20 16:59 Heparin Sodium (Porcine) (Heparin 5000 units/ml) 5,000 units EVERY 12 HOURS SUBQ 04/03/20 21:00 05/18/20 20:59 04/04/20 09:48 Insulin Aspart (NovoLOG) Q4HR SUBQ 04/04/20 00:00 07/03/20 00:00 04/04/20 12:40 Iohexol (OMNIPAQUE-300 100ml) 100 ml NOW PRN INJ Radiology Procedure 04/03/20 16:45 04/05/20 16:44 Lorazepam (Ativan 2mg/ml 1ml) 2 mg Q2H PRN IV agitation 04/03/20 17:00 04/10/20 16:59 Morphine Sulfate (Morphine Sulfate) 4 mg Q4H PRN IVP Severe Pain (Pain Scale 7-10) 04/03/20 17:00 04/10/20 16:59 Nitroglycerin (Ntg) 0.4 mg Q5M PRN SL Prn Chest Pain 04/03/20 17:00 05/03/20 16:59 Ondansetron HCl (Zofran) 4 mg Q6H PRN IVP Nausea & Vomiting 04/03/20 17:00 05/03/20 16:59 Polyethylene Glycol (Miralax) 17 gm DAILYPRN PRN ORAL Constipation 04/03/20 17:00 05/03/20 16:59 Objective Narrative GEN: NAD on RA HEENT: NCAT, MMM, EOMI, No scleral icterus Neck: Supple no LAD HEART: RRR, S1, S2 PULM: CTAB, No W ABD: Soft, NT, ND, +BS EXT: No C/C/E, 2+ Pulses B/L NEURO: A/O x 3 No focal deficits SKIN: lower pelvis with some mild cellultis and ulcers with eschar. Distal wound cellulitis Assessment/Plan Assessment/Plan: 60 yo female who presented to ED with DKA and cellulitis. The patient had some lower pelvic lesions that she has been present for about a week. Cellulitis / ulcers Afebrile No Leukocytosis DKA Plan - Start Clindamycin 450mg QID #1/7 days - f/u culture Cultures - Monitor CBC and Temps Thank you for this consult. [facility] will continue to follow Ms. Gonsalves with you during her hospitalization. Jh Montes MD Apr 04, 2020 13:36
--- NOTE | 2020-04-04 15:00 | Consultation ---
DATE OF CONSULTATION: 04/04/2020 ENDOCRINOLOGY CONSULTATION CONSULTING PHYSICIAN: Rush Dinh MD. REFERRING PHYSICIAN: Estuardo Ly MD. REASON FOR CONSULTATION: Diabetes. HISTORY OF PRESENT ILLNESS: The patient is a 60-year-old female without any history of diabetes, who was brought to the hospital by relatives. She is a very poor historian. She presented with chest discomfort. She was noted to have elevated glucose. On presentation, glucose was 1000 without any anion gap. Denies any history of diabetes, not taking any medication. The patient was started on IV fluid and IV insulin, which was transferred to subcutaneous insulin and admitted to the floor for observation and treatment. PAST MEDICAL HISTORY: None. PAST SURGICAL HISTORY: None. FAMILY HISTORY: Noncontributory. SOCIAL HISTORY: No smoking, alcohol, or drug use. MEDICATIONS: As an outpatient, none. REVIEW OF SYSTEMS: As per HPI. PHYSICAL EXAMINATION: HEENT: Pupils are reactive to light. Sclerae are anicteric. NECK: No JVD. No thyromegaly. LUNGS: Clear. HEART: Regular rate and rhythm. ABDOMEN: Positive bowel sounds. EXTREMITIES: Trace edema. LABORATORY DATA: Sodium 128, potassium 5, chloride 92, bicarb 21, BUN 13, creatinine 0.9. Glucose 1069. Alkaline phosphatase 145, total protein 6.1, albumin 3.3. Urine tox is negative. CBC shows WBC of 8.8, hemoglobin 14.5, hematocrit 44.2, and platelets of 199. DIAGNOSES: 1. New-onset diabetes. 2. Hyponatremia due to hyperglycemia. DISCUSSION: 1. The patient is currently NPO. 2. Continue NovoLog sliding scale before meals and at bedtime. 3. We will start NovoLog and Levemir regimen once the diet is initiated. 4. Continue IV fluids. 5. Follow hemoglobin A1c. 6. We will follow the patient during the hospital stay. Thank you, Dr. Ly, for the courtesy of this consultation. Rush Dinh M.D. DR: Joselin JOB#: [id number] CC: WILMAR
--- NOTE | 2020-04-04 15:06 | NUR ---
WINDER FIXER NOTE SW met w/ pt to discuss her concern/needs. Pt has been homeless for 3 months after leaving a board and care facility located on . Pt was unable to recall the name of facility that she was previously at. Pt was at [facility] prior to her transfer to the other facility. MONICA spoke rich Grier from [facility] and was informed that [facility] is permanently closed and previous residents were transferred to various facilities in [place]. SW is unable to locate pt's previous facility at this time. Pt has 5 adult children but all estranged. Pt did not recall any emergency contact. Pt denies having substance abuse/ETOH/tobacco use. PT also denies having mental health issue. Pt reports being ambulatory w/o DMEs and independent w/ ADLs and IADLs. Pt receives SSI and is self-payee. However, pt has been unable to access her check since she left the facility. Pt reports losing her purse, thus she does not have ID with her. MONICA spoke stacey/ [facility] [phone] and faxed the referral packet to [facility] [phone] for review. MONICA will continue to F/U. MONICA spoke stacey/ David from [facility] office [phone] and confirmed pt is not conserved. MONICA attempted to call Adult Missing Person unit [phone] but the call was not answered. MONICA will attempt again. Addendum: 04/04/20 at 1527 by JOCELYN ANDERSON MONICA attempted to call Adult Missing Person Unit [phone] but the call was not answered. SW will continue to F/U.
[2020-04-04 16:00] VITALS: BP 103/61
--- NOTE | 2020-04-04 16:21 | Cardiac Electrophysiology PN ---
Subjective Subjective [id number] Objective Last 24 Hour Vital Signs Date Time Temp Pulse Resp B/P (MAP) Pulse Ox O2 Delivery O2 Flow Rate FiO2 04/04/20 12:00 58 04/04/20 12:00 97.5 61 20 126/73 (90) 96 04/04/20 09:00 Room Air 04/04/20 08:00 97.5 56 18 118/68 (85) 95 04/04/20 08:00 58 04/04/20 04:00 61 04/04/20 04:00 99.0 58 18 105/68 (80) 96 04/04/20 00:00 54 04/04/20 00:00 99.0 56 18 110/66 (81) 95 04/03/20 22:09 Room Air 04/03/20 21:15 61 04/03/20 21:15 97.5 59 19 117/66 (83) 95 04/03/20 21:00 98.8 69 20 119/79 99 Room Air 04/03/20 18:43 98.8 67 18 138/80 98 Room Air 04/03/20 17:35 98.8 64 20 132/80 98 Room Air Intake and Output 04/03/20 04/04/20 19:00 07:00 Intake Total 0 ml Output Total 500 ml Balance -500 ml 0 ml Intake Oral 0 ml Output Urine Total 500 ml # Voids 1 Laboratory Tests Test 04/03/20 16:30 04/03/20 16:32 04/03/20 17:09 04/03/20 17:30 Urine Color Pale yellow Urine Appearance Clear Urine pH 6.5 (4.5-8.0) Urine Specific [place] 1.010 (1.005-1.035) Urine Protein Negative (NEGATIVE) Urine Glucose (UA) 4+ (NEGATIVE) H Urine Ketones Negative (NEGATIVE) Urine Blood Negative (NEGATIVE) Urine Nitrite Negative (NEGATIVE) Urine Bilirubin Negative (NEGATIVE) Urine Urobilinogen Normal MG/DL (0.0-1.0) Urine Leukocyte Esterase Negative (NEGATIVE) Urine Opiates Screen Negative (NEGATIVE) Urine Barbiturates Screen Negative (NEGATIVE) Phencyclidine (PCP) Screen Negative (NEGATIVE) Urine Amphetamines Screen Negative (NEGATIVE) Urine Benzodiazepines Screen Negative (NEGATIVE) Urine Cocaine Screen Negative (NEGATIVE) Urine Marijuana (THC) Screen Negative (NEGATIVE) POC Whole Blood Glucose 375 MG/DL (74-106) H 301 MG/DL (74-106) H Test 04/03/20 17:44 04/03/20 18:02 04/03/20 19:18 04/03/20 22:03 Venous Blood pH 7.300 Venous Blood Partial Pressure CO2 48.7 Venous Blood Partial Pressure O2 33.1 Venous Blood HCO3 23.4 Venous Blood Total Carbon Dioxide 48.7 Venous Blood Base Excess -3.4 Venous Blood Carboxyhemoglobin 1.8 % (0.5-1.5) H Methemoglobin 0.2 POC Whole Blood Glucose 227 MG/DL (74-106) H 196 MG/DL (74-106) H 247 MG/DL (74-106) H Test 04/04/20 00:24 04/04/20 05:50 04/04/20 06:12 04/04/20 09:03 POC Whole Blood Glucose 292 MG/DL (74-106) H 139 MG/DL (74-106) H Pending Prothrombin Time 10.3 SEC (9.30-11.50) Prothromb Time International Ratio 0.9 (0.9-1.1) Activated Partial Thromboplast Time 24 SEC (23-33) Sodium Level 143 MMOL/L (136-145) # Potassium Level 3.6 MMOL/L (3.5-5.1) Chloride Level 110 MMOL/L (98-107) H Carbon Dioxide Level 25 MMOL/L (21-32) Anion Gap 9 mmol/L (5-15) Blood Urea Nitrogen 6 mg/dL (7-18) L Creatinine 0.5 MG/DL (0.55-1.30) #L Estimat Glomerular Filtration Rate > 60 mL/min (>60) Glucose Level 153 MG/DL (74-106) #H Calcium Level 8.4 MG/DL (8.5-10.1) L Phosphorus Level 2.3 MG/DL (2.5-4.9) L Total Bilirubin 0.3 MG/DL (0.2-1.0) Direct Bilirubin < 0.1 MG/DL (0.0-0.3) Aspartate Amino Transf (AST/SGOT) 13 U/L (15-37) L Alanine Aminotransferase (ALT/SGPT) 13 U/L (12-78) Alkaline Phosphatase 97 U/L (46-116) Total Protein 4.6 G/DL (6.4-8.2) L Albumin 2.4 G/DL (3.4-5.0) L Test 04/04/20 11:52 POC Whole Blood Glucose 232 MG/DL (74-106) H Microbiology Date/Time Source Procedure Growth Status 04/03/20 14:34 Nasopharynx SARS-CoV-2 RdRp Gene Assay - Final Complete Hilario Conn MD Apr 04, 2020 16:21
--- NOTE | 2020-04-04 16:29 | History & Physical ---
History and Physical History & Physicial Job # Estuardo Ly MD Apr 04, 2020 16:29
[2020-04-04] MEDS: Clindamycin 150mg cap ORAL SCH (17:26)
--- NOTE | 2020-04-04 18:45 | Consultation ---
DATE OF CONSULTATION: 04/04/2020 CARDIOLOGY CONSULTATION CONSULTING PHYSICIAN: Hilario Conn MD. REFERRING PHYSICIAN: Estuardo Ly MD. REASON FOR CONSULTATION: Hypertension, uncontrolled diabetes, and cardiac murmur. HISTORY OF PRESENT ILLNESS: Patient is a 60-year-old lady with history of hypertension and diabetes who was brought to the emergency room for not feeling well as well as chest discomfort for the last week or so. Patient was noted to have blood glucose of more than 1000. Patient was admitted and a Cardiology consultation was obtained for further evaluation. Patient denies any chest pain or shortness of breath on my evaluation. When asking about the cardiac history, she states that she has a cardiac murmur. REVIEW OF SYSTEMS: Negative other than what was mentioned in the history of present illness. PAST MEDICAL HISTORY: As mentioned above. FAMILY HISTORY: Noncontributory. SOCIAL HISTORY: She is homeless. Denies smoking or drinking alcohol or using drugs. PHYSICAL EXAMINATION: VITAL SIGNS: Her blood pressure in the ER was 174/97 with a pulse of 123, currently 126/73 with a pulse of 61, respirations 18, temperature 97.5. HEAD AND NECK: Showed no JVD. LUNGS: Clear. CARDIOVASCULAR: Shows regular S1 and S2 with no gallop or murmur. ABDOMEN: Soft. EXTREMITIES: No pitting edema. LABORATORY DATA: Labs show sodium 142, potassium 3.6, BUN of 6, creatinine of 0.5, and a glucose of 153. Initial glucose was more than 1000. Her initial troponin is negative. Initial sodium was 128. ASSESSMENT AND PLAN: 1. Chest pain. Patient with glucose of more than 1000 and hypertension. We will completely rule out LA protocol. Repeat the EKG and get an echocardiogram for further evaluation. 2. Uncontrolled hypertension. Start the patient on lisinopril 10 mg b.i.d. that is beneficial in view of the patient's diabetes. 3. Uncontrolled diabetes with glucose of more than 1000. Further evaluation by Dr. Dinh. On insulin. 4. Cellulitis with lower pelvic lesions. Started on clindamycin per ID. Thank you very much for allowing me to participate in the care of this patient. Please do not hesitate to contact me for any questions regarding my evaluation. Hilario Conn M.D. DR: DARLENE JOB#: [id number] CC:
--- NOTE | 2020-04-04 19:20 | NUR ---
NURSE NOTES: Received report from JEREMY Magana. Pt in bed awake, alert, oriented x3, able to make needs known. No resp distress noted. quality assurance monitor final in place. IV on left AC & right AC saline locked, in place & patent . Bed in low position & locked, side rails up x3, bed alarm. Call light with in reach.
[2020-04-04 20:00] VITALS: BP_SYST 116; BP_SYST 128; BP_DIAS 61; BP_DIAS 62
--- NOTE | 2020-04-04 23:00 | History and Physical Report ---
DATE OF ADMISSION: 04/03/2020 CHIEF COMPLAINT: Chest pain. HISTORY OF PRESENT ILLNESS: This is a 60-year-old female who denies any past medical or past surgical history, homeless, presented to emergency department by paramedics complaining about chest discomfort since last week. The patient denies any nausea or vomiting. Shortly after initial evaluation in the emergency, the patient was noted to have an elevated blood glucose level and subsequently was admitted to the hospital with new onset diabetes. PAST MEDICAL HISTORY/PAST SURGICAL HISTORY: None. MEDICATIONS AT HOME: None. ALLERGIES: No known drug allergies. SOCIAL HISTORY: The patient smokes 5 cigarettes a day. Denies any alcohol or substance abuse. FAMILY HISTORY: Noncontributory. REVIEW OF SYSTEMS: Mostly as above. PHYSICAL EXAMINATION: VITAL SIGNS: On admission from the emergency, temperature 98.8, pulse of 123, respirations 20, and blood pressure 174/97. GENERAL: The patient is awake and responsive, in no acute distress. HEAD AND NECK: Pupils are reactive to light. Extraocular movements are intact. Neck was supple. No JVD. LUNGS: Good air entry. No wheeze or rales. HEART: Reveals S1 and S2. Regular rhythm. No gallops. ABDOMEN: Soft, nondistended, and nontender. Positive bowel sounds. Pelvic area has an ulceration. EXTREMITIES: No cyanosis, clubbing, or edema. NEUROLOGIC: Cranial nerves II through XII are grossly intact. Motor is 5/5 in all extremities. LABORATORY DATA: On admission, WBC of 8.8, hemoglobin 14, hematocrit 44, and platelets is 189,000. Sodium 128, potassium 5.0, chloride 92, bicarb 21, BUN 13, creatinine 1.4, GFR is 38, and glucose level is 1069. Alkaline phosphatase was 145. Urine drug screen is negative. Acetaminophen level is negative. PT 10, INR 0.9, and PTT of 24. Urinalysis +4 glucose, otherwise no nitrites or leukocytes. COVID-19 test negative. Chest x-ray was noted to be no acute cardiopulmonary disease. CT of the abdomen and pelvis, small hiatal hernia, possible distal esophagitis, atypical pneumonia such as COVID-19 cannot be excluded, gallbladder is unremarkable, complex cyst of the upper lobe region of the right kidney. Appendix is unremarkable. Moderate quantity of the stool throughout the colon. No evidence of the bowel obstruction. The patient fecal impaction, possible cellulitis about the left buttock region. ASSESSMENT: 1. A new onset diabetes with DKA. 2. Hypertension. 3. Cellulitis of the pelvic area. 4. Hyponatremia. PLAN: Admit the patient to monitored unit. We will follow up with the series of laboratory and culture. Follow up with Dr. Rush Dinh from Endocrine, Dr. Conn from Cardiology, Dr. Saunders from Pulmonary Critical Care, Dr. Pena from [facility], and Dr. Montes from Infectious Disease. The patient is started on clindamycin. Monitor blood glucose level closely. Code status is Full Code. DVT prophylaxis with heparin subcutaneous. Estuardo Ly M.D. DR: YESSENIA JOB#: [id number] CC:
[2020-04-05] VITALS (7 sets, daily range): BP systolic 87–129; BP diastolic 57–75
[2020-04-05] MEDS: Clindamycin 150mg cap ORAL SCH ×5 (00:35→23:34)
[2020-04-05] MEDS: NovoLOG Insulin Flexpen SUBQ SCH ×7 (00:41→20:27)
[2020-04-05 03:35] LABS: BASOPHILS % (AUTO) 1.1 % (0.0-2.0); EOSINOPHILS % (AUTO) 2.1 % (0.0-3.0); HEMATOCRIT 38.9 % (37.0-47.0); HEMOGLOBIN 13.1 G/DL (12.0-16.0); LYMPHOCYTES % (AUTO) 30.8 % (20.0-45.0); MEAN CORPUSCULAR VOLUME 85 FL (80-99); MONOCYTES % (AUTO) 6.7 % (1.0-10.0); NEUTROPHILS % (AUTO) 59.2 % (45.0-75.0); PLATELET COUNT 167 K/UL (150-450); RED BLOOD COUNT 4.59 M/UL (4.20-5.40); RED CELL DISTRIBUTION WIDTH 12.9 % (11.6-14.8); WHITE BLOOD COUNT 6.2 K/UL (4.8-10.8)
[2020-04-05 03:50] LABS: ALANINE AMINOTRANSFERASE 15 U/L (12-78); ALBUMIN 2.2 G/DL (3.4-5.0); ALBUMIN/GLOBULIN RATIO 0.8 (1.0-2.7); ALKALINE PHOSPHATASE 98 U/L (46-116); ANION GAP 8 mmol/L (5-15); ASPARTATE AMINO TRANSFERASE 17 U/L (15-37); BILIRUBIN,TOTAL 0.3 MG/DL (0.2-1.0); BLOOD UREA NITROGEN 9 mg/dL (7-18); CALCIUM 8.2 MG/DL (8.5-10.1); CARBON DIOXIDE 24 MMOL/L (21-32); CHLORIDE 104 MMOL/L (98-107); CREATININE 0.6 MG/DL (0.55-1.30); PHOSPHORUS 2.7 MG/DL (2.5-4.9); SODIUM 135 MMOL/L (136-145)
--- NOTE | 2020-04-05 07:02 | NUR ---
NURSE NOTES: Received report from JEREMY Pop. Pt in bed awake, alert, oriented x3 eating breakfast, able to make needs known. No resp distress noted. health communications specialist in place. IV on left AC & right AC saline locked, in place. Bed in low position & locked, side rails up x3, bed alarm on. Call light with in reach.
--- NOTE | 2020-04-05 07:10 | NUR ---
NURSE NOTES: [address] Conn made aware of results.
--- NOTE | 2020-04-05 07:10 | NUR ---
NURSE HAND-OFF REPORT: Important Events on Shift:monitor blood sugar Patient Status: stable Diet: CCHO medium Pending Orders: [] Pending Results/Labs:[] Pending MD notification:[] Latest Vital Signs: Temperature 97.7 , Pulse 55 , B/P 126 /65 , Respiratory Rate 19 , O2 SAT 95 , Room Air, O2 Flow Rate . Vital Sign Comment: [] EKG Rhythm: Sinus Bradycardia Rhythm change?: Y MD Notified?: N -Dr Malachi Saunders MD Response: No New Orders Received Latest Grajeda Fall Score: 45 Fall Risk: High Risk Safety Measures: Call light Within Reach, Bed Alarm Zone 2, Side Rails Side Rails x2, Bed position Low and Locked. Fall Precautions: Yellow Socks Yellow Gown Door Sign Patient Fall Education Report given to JEREMY CARLISLE.
--- NOTE | 2020-04-05 08:01 | General Progress Note ---
Subjective Allergies: Coded Allergies: No Known Allergies (Unverified , 04/03/20) All Systems: reviewed and negative except above Subjective events noted interval notes reviewed glucose values elevated diet started Item Value Date Time Bedside Blood Glucose 318 mg/dl H 04/05/20 0600 Bedside Blood Glucose 333 mg/dl H 04/05/20 0041 Bedside Blood Glucose 368 mg/dl H 04/04/20 2104 Bedside Blood Glucose 234 mg/dl H 04/04/20 1645 Bedside Blood Glucose 232 mg/dl H 04/04/20 1240 Bedside Blood Glucose 185 mg/dl H 04/04/20 0945 Bedside Blood Glucose 139 mg/dl H 04/04/20 0600 Bedside Blood Glucose 292 mg/dl H 04/04/20 0039 Objective Last 24 Hour Vital Signs Date Time Temp Pulse Resp B/P (MAP) Pulse Ox O2 Delivery O2 Flow Rate FiO2 04/05/20 04:00 97.7 62 19 126/65 (85) 95 04/05/20 04:00 55 04/05/20 00:00 54 04/05/20 00:00 97.8 58 19 127/75 (92) 93 04/04/20 21:00 Room Air 04/04/20 20:00 64 04/04/20 20:00 97.7 62 20 116/62 (80) 95 04/04/20 16:00 97.5 63 18 103/61 (75) 95 04/04/20 16:00 68 04/04/20 12:00 58 04/04/20 12:00 97.5 61 20 126/73 (90) 96 04/04/20 09:00 Room Air 04/04/20 08:00 97.5 56 18 118/68 (85) 95 04/04/20 08:00 58 Intake and Output0 04/04/20 04/05/20 19:00 07:00 Intake Total 240 ml 350 ml Balance 240 ml 350 ml Intake Oral 240 ml 350 ml # Voids 3 1 Laboratory Tests 04/04/20 09:03: POC Whole Blood Glucose [Pending] 04/04/20 11:52: POC Whole Blood Glucose 232H 04/04/20 16:39: POC Whole Blood Glucose [Pending] 04/04/20 19:00: Troponin I 0.013 04/04/20 20:51: POC Whole Blood Glucose 368H 04/05/20 00:38: POC Whole Blood Glucose 333H 04/05/20 03:00: White Blood Count 6.2, Red Blood Count 4.59, Hemoglobin 13.1, Hematocrit 38.9, Mean Corpuscular Volume 85, Mean Corpuscular Hemoglobin 28.6, Mean Corpuscular Hemoglobin Concent 33.7, Red Cell Distribution Width 12.9, Platelet Count 167, M champ Platelet Volume 8.6, Neutrophils (%) (Auto) 59.2, Lymphocytes (%) (Auto) 30.8, Monocytes (%) (Auto) 6.7, Eosinophils (%) (Auto) 2.1, Basophils (%) (Auto) 1.1, Erythrocyte Sedimentation Rate 18, Sodium Level 135L, Potassium Level 4.0, Chloride Level 104, Carbon Dioxide Level 24, Anion Gap 8, Blood Urea Nitrogen 9, Creatinine 0.6, Estimat Glomerular Filtration Rate > 60, Glucose Level 360#H, Calcium Level 8.2L, Phosphorus Level 2.7, Magnesium Level 1.7L, Total Bilirubin 0.3, Aspartate Amino Transf (AST/SGOT) 17, Alanine Aminotransferase (ALT/SGPT) 15, Alkaline Phosphatase 98, Troponin I 0.001, C-Reactive Protein, Quantitative 1.7H, Pro-B-Type Natriuretic Peptide 613H, Total Protein 4.8L, Albumin 2.2L, Globulin 2.6, Albumin/Globulin Ratio 0.8L 04/05/20 05:52: POC Whole Blood Glucose 318H Height (Feet): 4 Height (Inches): 11.00 Weight (Pounds): 122 General Appearance: no apparent distress Neck: normal alignment Cardiovascular: normal rate Respiratory/Chest: lungs clear Abdomen: normal bowel sounds Pelvis: normal external exam Objective Current Medications Medications (Trade) Dose Ordered Sig/Nathan Route PRN Reason Start Time Stop Time Status Last Admin Dose Admin Acetaminophen (Tylenol) 650 mg Q4H PRN ORAL Fever 04/03/20 17:00 05/03/20 16:59 Albuterol/ Ipratropium (Albuterol/ Ipratropium) 3 ml Q4H PRN HHN Shortness of Breath 04/03/20 17:00 04/08/20 16:59 Clindamycin HCl (Cleocin) 450 mg EVERY 6 HOURS ORAL 04/04/20 18:00 04/11/20 17:59 04/05/20 05:50 Dextrose (Dextrose 50%) 25 ml Q30M PRN IV HYPOGLYCEMIA 04/03/20 17:00 07/02/20 16:59 Dextrose (Dextrose 50%) 50 ml Q30M PRN IV Hypoglycemia 04/03/20 17:00 07/02/20 16:59 Heparin Sodium (Porcine) (Heparin 5000 units/ml) 5,000 units EVERY 12 HOURS SUBQ 04/03/20 21:00 05/18/20 20:59 04/04/20 20:58 Insulin Aspart (NovoLOG) Q4HR SUBQ 04/04/20 00:00 07/03/20 00:00 04/05/20 05:56 Iohexol (OMNIPAQUE-300 100ml) 100 ml NOW PRN INJ Radiology Procedure 04/03/20 16:45 04/05/20 16:44 Lisinopril (ZestriL) 5 mg DAILY ORAL 04/05/20 09:00 05/05/20 08:59 Lorazepam (Ativan 2mg/ml 1ml) 2 mg Q2H PRN IV agitation 04/03/20 17:00 04/10/20 16:59 Morphine Sulfate (Morphine Sulfate) 4 mg Q4H PRN IVP Severe Pain (Pain Scale 7-10) 04/03/20 17:00 04/10/20 16:59 Nitroglycerin (Ntg) 0.4 mg Q5M PRN SL Prn Chest Pain 04/03/20 17:00 05/03/20 16:59 Ondansetron HCl (Zofran) 4 mg Q6H PRN IVP Nausea & Vomiting 04/03/20 17:00 05/03/20 16:59 Polyethylene Glycol (Miralax) 17 gm DAILYPRN PRN ORAL Constipation 04/03/20 17:00 05/03/20 16:59 Assessment/Plan Problem List: (1) Hyperglycemia ICD Codes: R73.9 - Hyperglycemia, unspecified SNOMED: 10113986 (2) Chest pain ICD Codes: R07.9 - Chest pain, unspecified SNOMED: 63973726 Assessment/Plan: start Levemir 18 units daily start Novolog 6 units ac tid change Novolog sliding scale q4h to ac / hs hypoglycemia protocol in order Rush Dinh MD Apr 05, 2020 08:01
--- NOTE | 2020-04-05 08:56 | Infectious Diseases Prog Note ---
Assessment/Plan 60 yo female who presented to ED with DKA and cellulitis. The patient had some lower pelvic lesions that she has been present for about a week. Cellulitis / ulcers Afebrile No Leukocytosis DKA Plan - Start Clindamycin 450mg QID #2/7 days - f/u culture Cultures - Monitor CBC and Temps Thank you for this consult. [facility] will continue to follow Ms. Gonsalves with you during her hospitalization. Subjective Allergies: Coded Allergies: No Known Allergies (Unverified , 04/03/20) Afebrile No Leukocytosis HAROON Objective Last 24 Hour Vital Signs Date Time Temp Pulse Resp B/P (MAP) Pulse Ox O2 Delivery O2 Flow Rate FiO2 04/05/20 08:00 99.1 66 18 116/62 (80) 93 04/05/20 08:00 64 04/05/20 04:00 97.7 62 19 126/65 (85) 95 04/05/20 04:00 55 04/05/20 00:00 54 04/05/20 00:00 97.8 58 19 127/75 (92) 93 04/04/20 21:00 Room Air 04/04/20 20:00 64 04/04/20 20:00 97.7 62 20 116/62 (80) 95 04/04/20 16:00 97.5 63 18 103/61 (75) 95 04/04/20 16:00 68 04/04/20 12:00 58 04/04/20 12:00 97.5 61 20 126/73 (90) 96 04/04/20 09:00 Room Air Height (Feet): 4 Height (Inches): 11.00 Weight (Pounds): 122 GEN: NAD on RA HEENT: NCAT, MMM, EOMI CHEST Equal rise and fall B/L ABD: Soft NT Microbiology Date/Time Source Procedure Growth Status 04/03/20 18:00 Blood Blood Culture - Preliminary Resulted 04/03/20 17:45 Blood Blood Culture - Preliminary NO GROWTH AFTER 24 HOURS Resulted 04/03/20 16:36 Rectum - Final NO CARBAPENEM-RESISTANT ENTEROBACTERI... Complete 04/03/20 16:36 Nasal Nares MRSA Culture - Final NO METHICILLIN RESISTANT STAPH AUREUS... Complete 04/03/20 14:34 Nasopharynx SARS-CoV-2 RdRp Gene Assay - Final Complete Laboratory Tests Test 04/04/20 09:03 04/04/20 11:52 04/04/20 16:39 04/04/20 19:00 POC Whole Blood Glucose Pending 232 MG/DL (74-106) H Pending Troponin I 0.013 ng/mL (0.000-0.056) Test 04/04/20 20:51 04/05/20 00:38 04/05/20 03:00 04/05/20 05:52 POC Whole Blood Glucose 368 MG/DL (74-106) H 333 MG/DL (74-106) H 318 MG/DL (74-106) H White Blood Count 6.2 K/UL (4.8-10.8) Red Blood Count 4.59 M/UL (4.20-5.40) Hemoglobin 13.1 G/DL (12.0-16.0) Hematocrit 38.9 % (37.0-47.0) Mean Corpuscular Volume 85 FL (80-99) Mean Corpuscular Hemoglobin 28.6 PG (27.0-31.0) Mean Corpuscular Hemoglobin Concent 33.7 G/DL (32.0-36.0) Red Cell Distribution Width 12.9 % (11.6-14.8) Platelet Count 167 K/UL (150-450) Mean Platelet Volume 8.6 FL (6.5-10.1) Neutrophils (%) (Auto) 59.2 % (45.0-75.0) Lymphocytes (%) (Auto) 30.8 % (20.0-45.0) Monocytes (%) (Auto) 6.7 % (1.0-10.0) Eosinophils (%) (Auto) 2.1 % (0.0-3.0) Basophils (%) (Auto) 1.1 % (0.0-2.0) Erythrocyte Sedimentation Rate 18 MM/HR (0-30) Sodium Level 135 MMOL/L (136-145) L Potassium Level 4.0 MMOL/L (3.5-5.1) Chloride Level 104 MMOL/L (98-107) Carbon Dioxide Level 24 MMOL/L (21-32) Anion Gap 8 mmol/L (5-15) Blood Urea Nitrogen 9 mg/dL (7-18) Creatinine 0.6 MG/DL (0.55-1.30) Estimat Glomerular Filtration Rate > 60 mL/min (>60) Glucose Level 360 MG/DL (74-106) #H Calcium Level 8.2 MG/DL (8.5-10.1) L Phosphorus Level 2.7 MG/DL (2.5-4.9) Magnesium Level 1.7 MG/DL (1.8-2.4) L Total Bilirubin 0.3 MG/DL (0.2-1.0) Aspartate Amino Transf (AST/SGOT) 17 U/L (15-37) Alanine Aminotransferase (ALT/SGPT) 15 U/L (12-78) Alkaline Phosphatase 98 U/L (46-116) Troponin I 0.001 ng/mL (0.000-0.056) C-Reactive Protein, Quantitative 1.7 mg/dL (0.00-0.90) H Pro-B-Type Natriuretic Peptide 613 pg/mL (0-125) H Total Protein 4.8 G/DL (6.4-8.2) L Albumin 2.2 G/DL (3.4-5.0) L Globulin 2.6 g/dL Albumin/Globulin Ratio 0.8 (1.0-2.7) L Current Medications Medications (Trade) Dose Ordered Sig/Nathan Route PRN Reason Start Time Stop Time Status Last Admin Dose Admin Acetaminophen (Tylenol) 650 mg Q4H PRN ORAL Fever 04/03/20 17:00 05/03/20 16:59 Albuterol/ Ipratropium (Albuterol/ Ipratropium) 3 ml Q4H PRN HHN Shortness of Breath 04/03/20 17:00 04/08/20 16:59 Clindamycin HCl (Cleocin) 450 mg EVERY 6 HOURS ORAL 04/04/20 18:00 04/11/20 17:59 04/05/20 05:50 Dextrose (Dextrose 50%) 25 ml Q30M PRN IV Hypoglycemia 04/05/20 08:00 07/04/20 07:59 Dextrose (Dextrose 50%) 50 ml Q30M PRN IV Hypoglycemia 04/05/20 08:00 07/04/20 07:59 Heparin Sodium (Porcine) (Heparin 5000 units/ml) 5,000 units EVERY 12 HOURS SUBQ 04/03/20 21:00 05/18/20 20:59 10/2/20 20:58 Insulin Aspart (NovoLOG) BEFORE MEALS AND HS SUBQ 04/05/20 11:30 07/04/20 11:29 Insulin Aspart (NovoLOG) 6 units NOVOTIAC SUBQ 04/05/20 11:50 07/04/20 11:49 Insulin Detemir (Levemir) 18 units DAILY SUBQ 04/05/20 10:00 07/04/20 09:59 Iohexol (OMNIPAQUE-300 100ml) 100 ml NOW PRN INJ Radiology Procedure 04/03/20 16:45 04/05/20 16:44 Lisinopril (ZestriL) 5 mg DAILY ORAL 04/05/20 09:00 05/05/20 08:59 Lorazepam (Ativan 2mg/ml 1ml) 2 mg Q2H PRN IV agitation 04/03/20 17:00 04/10/20 16:59 Morphine Sulfate (Morphine Sulfate) 4 mg Q4H PRN IVP Severe Pain (Pain Scale 7-10) 04/03/20 17:00 04/10/20 16:59 Nitroglycerin (Ntg) 0.4 mg Q5M PRN SL Prn Chest Pain 04/03/20 17:00 05/03/20 16:59 Ondansetron HCl (Zofran) 4 mg Q6H PRN IVP Nausea & Vomiting 04/03/20 17:00 05/03/20 16:59 Polyethylene Glycol (Miralax) 17 gm DAILYPRN PRN ORAL Constipation 04/03/20 17:00 05/03/20 16:59 Jh Montes MD Apr 05, 2020 08:56
[2020-04-05] MEDS: Lisinopril 2.5mg tab ORAL SCH (08:58)
[2020-04-05] MEDS: Heparin 5000 units/ml inj SUBQ SCH ×2 (08:59→20:28)
--- NOTE | 2020-04-05 09:06 | Surgery Progress Note ---
Surgery Progress Note Subjective Additional Comments no complaints states feels well no n/v/fc labs noted esr/crp noted Objective Last 24 Hour Vital Signs Date Time Temp Pulse Resp B/P (MAP) Pulse Ox O2 Delivery O2 Flow Rate FiO2 04/05/20 08:58 116/62 04/05/20 08:00 99.1 66 18 116/62 (80) 93 04/05/20 08:00 64 04/05/20 04:00 97.7 62 19 126/65 (85) 95 04/05/20 04:00 55 04/05/20 00:00 54 04/05/20 00:00 97.8 58 19 127/75 (92) 93 04/04/20 21:00 Room Air 04/04/20 20:00 64 04/04/20 20:00 97.7 62 20 116/62 (80) 95 04/04/20 16:00 97.5 63 18 103/61 (75) 95 04/04/20 16:00 68 04/04/20 12:00 58 04/04/20 12:00 97.5 61 20 126/73 (90) 96 I&O Intake and Output 04/04/20 04/05/20 19:00 07:00 Intake Total 240 ml 350 ml Balance 240 ml 350 ml Intake Oral 240 ml 350 ml # Voids 3 1 Dressing: dry Wound: clean Cardiovascular: RSR Respiratory: clear Abdomen: soft, non-tender, present bowel sounds Extremities: no edema, no tenderness, no cyanosis Laboratory Tests Test 04/04/20 11:52 04/04/20 16:39 04/04/20 19:00 04/04/20 20:51 POC Whole Blood Glucose 232 MG/DL (74-106) H Pending 368 MG/DL (74-106) H Troponin I 0.013 ng/mL (0.000-0.056) Test 04/05/20 00:38 04/05/20 03:00 04/05/20 05:52 POC Whole Blood Glucose 333 MG/DL (74-106) H 318 MG/DL (74-106) H White Blood Count 6.2 K/UL (4.8-10.8) Red Blood Count 4.59 M/UL (4.20-5.40) Hemoglobin 13.1 G/DL (12.0-16.0) Hematocrit 38.9 % (37.0-47.0) Mean Corpuscular Volume 85 FL (80-99) Mean Corpuscular Hemoglobin 28.6 PG (27.0-31.0) Mean Corpuscular Hemoglobin Concent 33.7 G/DL (32.0-36.0) Red Cell Distribution Width 12.9 % (11.6-14.8) Platelet Count 167 K/UL (150-450) Mean Platelet Volume 8.6 FL (6.5-10.1) Neutrophils (%) (Auto) 59.2 % (45.0-75.0) Lymphocytes (%) (Auto) 30.8 % (20.0-45.0) Monocytes (%) (Auto) 6.7 % (1.0-10.0) Eosinophils (%) (Auto) 2.1 % (0.0-3.0) Basophils (%) (Auto) 1.1 % (0.0-2.0) Erythrocyte Sedimentation Rate 18 MM/HR (0-30) Sodium Level 135 MMOL/L (136-145) L Potassium Level 4.0 MMOL/L (3.5-5.1) Chloride Level 104 MMOL/L (98-107) Carbon Dioxide Level 24 MMOL/L (21-32) Anion Gap 8 mmol/L (5-15) Blood Urea Nitrogen 9 mg/dL (7-18) Creatinine 0.6 MG/DL (0.55-1.30) Estimat Glomerular Filtration Rate > 60 mL/min (>60) Glucose Level 360 MG/DL (74-106) #H Calcium Level 8.2 MG/DL (8.5-10.1) L Phosphorus Level 2.7 MG/DL (2.5-4.9) Magnesium Level 1.7 MG/DL (1.8-2.4) L Total Bilirubin 0.3 MG/DL (0.2-1.0) Aspartate Amino Transf (AST/SGOT) 17 U/L (15-37) Alanine Aminotransferase (ALT/SGPT) 15 U/L (12-78) Alkaline Phosphatase 98 U/L (46-116) Troponin I 0.001 ng/mL (0.000-0.056) C-Reactive Protein, Quantitative 1.7 mg/dL (0.00-0.90) H Pro-B-Type Natriuretic Peptide 613 pg/mL (0-125) H Total Protein 4.8 G/DL (6.4-8.2) L Albumin 2.2 G/DL (3.4-5.0) L Globulin 2.6 g/dL Albumin/Globulin Ratio 0.8 (1.0-2.7) L Plan Problems: (1) Pelvic cellulitis in female Assessment & Plan: Groin area has two abscess wounds with cellulitis. Distal wound cellulitis 11.3x1.4x0.2 with dry black eschar at apex of wound bed, moist white edges with small amount serosanguineous drainage red induration kristal wound skin. Proximal abscess wound dry black eschar, moist edges with small amount serosanguineous drainage periwound also red induration noted. Both wounds dressed with Thera honey and Optifoam. CT reviewed no fluid collection noted likely prior abscess now with cellulitis and wound cont abx local wound care as above bowel care will follow with eaxm and recs Liver: Diffuse fatty infiltration of the liver is noted. The liver and the spleen enhance uniformly. Gallbladder and bile ducts: See below. Pancreas: See below. Spleen: See above. Adrenals: The adrenal glands, the head, body, tail of the pancreas and the gallbladder are unremarkable. Kidneys and ureters: Both kidneys are shown to excrete contrast bilaterally without renal calculus or hydronephrosis per Nonspecific stranding about the perinephric spaces. A 1 cm complex cyst upper pole region of the right kidney which requires further workup for evaluation. Stomach and bowel: The stomach is underdistended. Moderate quantity of stool throughout the colon. No evidence of bowel obstruction. The rectosigmoid is distended with stool measuring 10.6 x 11.8 x 8.2 cm compatible with fecal impaction. No mucosal thickening. PELVIS: Appendix: Appendix is seen on coronal images 20 and 21 and is unremarkable. Bladder: The bladder is distended. Reproductive: The uterus and adnexal regions are unremarkable. Uterus is unremarkable. ABDOMEN and PELVIS: Intraperitoneal space: Unremarkable. No free air. No significant fluid collection. Bones/joints: Acute nondisplaced fracture of the posterior lateral aspect of the left 10th rib. Moderate degenerative disc disease of the spinal:. Moderate to severe osteoarthritic changes about the sacroiliac joints. Alignment of the visualized track the lumbar spine is unremarkable. Sacrum and coccyx are grossly unremarkable. Soft tissues: Ischiorectal fat is clean. Inflammatory changes are noted about the left buttocks region, partially visualized, possibly on the basis of cellulitis. Vasculature: Flow is demonstrated within the celiac, SMA, the renal arteries, and FAVIAN. Atherosclerotic disease of the abdominal aorta without change in caliber. No abdominal aortic aneurysm. Lymph nodes: Unremarkable. No enlarged lymph nodes. Other findings: Probable areas of scarring. No compression deformities. IMPRESSION: 1. Small hiatal hernia probable distal esophagitis. 2. Atypical pneumonia such as Covid-19 pneumonia cannot be excluded. 3. The gallbladder is unremarkable. 4. Nonspecific stranding about the perinephric spaces. 5. Complex cyst upper pole region of the right kidney. Magnetic resonance imaging of the abdomen is advised for further characterization. 6. The appendix is unremarkable. 7. Moderate quantity of stool throughout the colon. 8. No evidence of bowel obstruction. 9. Findings compatible with fecal impaction. 10. Possible cellulitis about the left buttocks region. Clinical (2) Chest pain (3) Hyperglycemia (4) History of diabetes mellitus Eduardo Pena Apr 05, 2020 09:06
--- NOTE | 2020-04-05 09:40 | NUR ---
Informed Dr. Montes that pt is potive blood cultures with gram + coci in clusters. nno
[2020-04-05] MEDS: Levemir Flexpen SUBQ SCH (09:57)
--- NOTE | 2020-04-05 10:28 | NUR ---
HAND-OFF: Report given to Vitro LUNA. Pt awake and alert.Reviewed wounds together. A note regarding wound assesment. only sacral redness is pressure related and it is no longer noted. The wounds on the bilateral ventral feet and lower abdominal area are not pressure related. See WCP. Lowered bed and locked it, palced call light within reach. No distress at this time.
--- NOTE | 2020-04-05 12:13 | Internal Med Progress Note ---
Subjective Date of Service: Apr 05, 2020 Physician Name Sharan Almaguer Attending Physician Estuardo Ly MD Current Medications Medications (Trade) Dose Ordered Sig/Nathan Route PRN Reason Start Time Stop Time Status Last Admin Dose Admin Acetaminophen (Tylenol) 650 mg Q4H PRN ORAL Fever 04/03/20 17:00 05/03/20 16:59 Albuterol/ Ipratropium (Albuterol/ Ipratropium) 3 ml Q4H PRN HHN Shortness of Breath 04/03/20 17:00 04/08/20 16:59 Clindamycin HCl (Cleocin) 450 mg EVERY 6 HOURS ORAL 04/04/20 18:00 04/11/20 17:59 04/05/20 05:50 Dextrose (Dextrose 50%) 25 ml Q30M PRN IV Hypoglycemia 04/05/20 08:00 07/04/20 07:59 Dextrose (Dextrose 50%) 50 ml Q30M PRN IV Hypoglycemia 04/05/20 08:00 07/04/20 07:59 Heparin Sodium (Porcine) (Heparin 5000 units/ml) 5,000 units EVERY 12 HOURS SUBQ 04/03/20 21:00 05/18/20 20:59 04/05/20 08:59 Insulin Aspart (NovoLOG) BEFORE MEALS AND HS SUBQ 04/05/20 11:30 07/04/20 11:29 Insulin Aspart (NovoLOG) 6 units NOVOTIAC SUBQ 04/05/20 11:50 07/04/20 11:49 Insulin Detemir (Levemir) 18 units DAILY SUBQ 04/05/20 10:00 07/04/20 09:59 04/05/20 09:57 Iohexol (OMNIPAQUE-300 100ml) 100 ml NOW PRN INJ Radiology Procedure 04/03/20 16:45 04/05/20 16:44 Lisinopril (ZestriL) 5 mg DAILY ORAL 04/05/20 09:00 05/05/20 08:59 04/05/20 08:58 Lorazepam (Ativan 2mg/ml 1ml) 2 mg Q2H PRN IV agitation 04/03/20 17:00 04/10/20 16:59 Morphine Sulfate (Morphine Sulfate) 4 mg Q4H PRN IVP Severe Pain (Pain Scale 7-10) 04/03/20 17:00 04/10/20 16:59 Nitroglycerin (Ntg) 0.4 mg Q5M PRN SL Prn Chest Pain 04/03/20 17:00 05/03/20 16:59 Ondansetron HCl (Zofran) 4 mg Q6H PRN IVP Nausea & Vomiting 04/03/20 17:00 05/03/20 16:59 Polyethylene Glycol (Miralax) 17 gm DAILYPRN PRN ORAL Constipation 04/03/20 17:00 05/03/20 16:59 Allergies: Coded Allergies: No Known Allergies (Unverified , 04/03/20) ROS Limited/Unobtainable: No Constitutional: Reports: no symptoms HEENT: Reports: no symptoms Cardiovascular: Reports: no symptoms Respiratory: Reports: no symptoms Gastrointestinal/Abdominal: Reports: no symptoms Genitourinary: Reports: no symptoms Neurologic/Psychiatric: Reports: no symptoms Subjective 60 YO F admitted with chest pain. Now new onset diabetes and hyperglycemia. Cover for Int Douglas-Dr Ly Objective Last Vital Signs Date Time Temp Pulse Resp B/P (MAP) Pulse Ox O2 Delivery O2 Flow Rate FiO2 04/05/20 09:00 Room Air 04/05/20 08:58 116/62 04/05/20 08:00 99.1 66 18 93 Laboratory Tests Test 04/04/20 16:39 04/04/20 19:00 04/04/20 20:51 04/05/20 00:38 POC Whole Blood Glucose Pending 368 MG/DL (74-106) H 333 MG/DL (74-106) H Troponin I 0.013 ng/mL (0.000-0.056) Test 04/05/20 03:00 04/05/20 05:52 04/05/20 11:47 White Blood Count 6.2 K/UL (4.8-10.8) Red Blood Count 4.59 M/UL (4.20-5.40) Hemoglobin 13.1 G/DL (12.0-16.0) Hematocrit 38.9 % (37.0-47.0) Mean Corpuscular Volume 85 FL (80-99) Mean Corpuscular Hemoglobin 28.6 PG (27.0-31.0) Mean Corpuscular Hemoglobin Concent 33.7 G/DL (32.0-36.0) Red Cell Distribution Width 12.9 % (11.6-14.8) Platelet Count 167 K/UL (150-450) Mean Platelet Volume 8.6 FL (6.5-10.1) Neutrophils (%) (Auto) 59.2 % (45.0-75.0) Lymphocytes (%) (Auto) 30.8 % (20.0-45.0) Monocytes (%) (Auto) 6.7 % (1.0-10.0) Eosinophils (%) (Auto) 2.1 % (0.0-3.0) Basophils (%) (Auto) 1.1 % (0.0-2.0) Erythrocyte Sedimentation Rate 18 MM/HR (0-30) Sodium Level 135 MMOL/L (136-145) L Potassium Level 4.0 MMOL/L (3.5-5.1) Chloride Level 104 MMOL/L (98-107) Carbon Dioxide Level 24 MMOL/L (21-32) Anion Gap 8 mmol/L (5-15) Blood Urea Nitrogen 9 mg/dL (7-18) Creatinine 0.6 MG/DL (0.55-1.30) Estimat Glomerular Filtration Rate > 60 mL/min (>60) Glucose Level 360 MG/DL (74-106) #H Calcium Level 8.2 MG/DL (8.5-10.1) L Phosphorus Level 2.7 MG/DL (2.5-4.9) Magnesium Level 1.7 MG/DL (1.8-2.4) L Total Bilirubin 0.3 MG/DL (0.2-1.0) Aspartate Amino Transf (AST/SGOT) 17 U/L (15-37) Alanine Aminotransferase (ALT/SGPT) 15 U/L (12-78) Alkaline Phosphatase 98 U/L (46-116) Troponin I 0.001 ng/mL (0.000-0.056) C-Reactive Protein, Quantitative 1.7 mg/dL (0.00-0.90) H Pro-B-Type Natriuretic Peptide 613 pg/mL (0-125) H Total Protein 4.8 G/DL (6.4-8.2) L Albumin 2.2 G/DL (3.4-5.0) L Globulin 2.6 g/dL Albumin/Globulin Ratio 0.8 (1.0-2.7) L POC Whole Blood Glucose 318 MG/DL (74-106) H 207 MG/DL (74-106) H Microbiology Date/Time Source Procedure Growth Status 04/03/20 18:00 Blood Blood Culture - Preliminary Resulted 04/03/20 17:45 Blood Blood Culture - Preliminary NO GROWTH AFTER 24 HOURS Resulted 04/03/20 16:36 Rectum - Final NO CARBAPENEM-RESISTANT ENTEROBACTERI... Complete 04/03/20 16:36 Nasal Nares MRSA Culture - Final NO METHICILLIN RESISTANT STAPH AUREUS... Complete 04/03/20 14:34 Nasopharynx SARS-CoV-2 RdRp Gene Assay - Final Complete Intake and Output 04/04/20 04/05/20 19:00 07:00 Intake Total 240 ml 350 ml Balance 240 ml 350 ml Intake Oral 240 ml 350 ml # Voids 3 1 Objective PHYSICAL EXAMINATION: GENERAL: The patient is awake and responsive, in no acute distress. HEAD AND NECK: Pupils are reactive to light. Extraocular movements are intact. Neck was supple. No JVD. LUNGS: Good air entry. No wheeze or rales. HEART: Reveals S1 and S2. Regular rhythm. No gallops. ABDOMEN: Soft, nondistended, and nontender. Positive bowel sounds. Pelvic area has an ulceration. EXTREMITIES: No cyanosis, clubbing, or edema. NEUROLOGIC: Cranial nerves II through XII are grossly intact. Motor is 5/5 in all extremities. Assessment/Plan Assessment/Plan ASSESSMENT: 1. A new onset diabetes with DKA. 2. Hypertension. 3. Cellulitis of the pelvic area. 4. Hyponatremia. PLAN: 1. Admit the patient to med/surg unit. 2. Dr. Rush Dinh = Endocrinology 3. Dr. Conn = Cardiology 4. Dr. Saunders = Pulmonary Critical Care 5. Dr. Pena = Surgery/Wound Clinic 6. Dr. Montes = Infectious Disease. 7. ABX= clindamycin. 8. Monitor blood glucose level closely. 9. Code status is Full Code 10. DVT prophylaxis with heparin subcutaneous. Sharan Almaguer MD Apr 05, 2020 12:13
--- NOTE | 2020-04-05 15:08 | Pulmonology Progress Note ---
Subjective ROS Limited/Unobtainable: Yes Constitutional: Reports: no symptoms HEENT: Repors: no symptoms Allergies: Coded Allergies: No Known Allergies (Unverified , 04/03/20) All Systems: reviewed and negative except above Objective Last 24 Hour Vital Signs Date Time Temp Pulse Resp B/P (MAP) Pulse Ox O2 Delivery O2 Flow Rate FiO2 04/05/20 09:00 Room Air 04/05/20 08:58 116/62 04/05/20 08:00 99.1 66 18 116/62 (80) 93 04/05/20 08:00 64 04/05/20 04:00 97.7 62 19 126/65 (85) 95 04/05/20 04:00 55 04/05/20 00:00 54 04/05/20 00:00 97.8 58 19 127/75 (92) 93 04/04/20 21:00 Room Air 04/04/20 20:00 64 04/04/20 20:00 97.7 62 20 116/62 (80) 95 04/04/20 16:00 97.5 63 18 103/61 (75) 95 04/04/20 16:00 68 Intake and Output 04/04/20 04/05/20 19:00 07:00 Intake Total 240 ml 350 ml Balance 240 ml 350 ml Intake Oral 240 ml 350 ml # Voids 3 1 General Appearance: WD/WN HEENT: normocephalic, atraumatic Respiratory: chest wall non-tender, lungs clear Breasts: no masses Cardiovascular: normal peripheral pulses Abdomen: normal bowel sounds, soft, non tender Genitourinary: normal external genitalia Extremities: no clubbing Neurologic: oven baker II-XII grossly normal Microbiology Date/Time Source Procedure Growth Status 04/03/20 18:00 Blood Blood Culture - Preliminary Resulted 04/03/20 17:45 Blood Blood Culture - Preliminary NO GROWTH AFTER 24 HOURS Resulted 04/03/20 16:36 Rectum - Final NO CARBAPENEM-RESISTANT ENTEROBACTERI... Complete 04/03/20 16:36 Nasal Nares MRSA Culture - Final NO METHICILLIN RESISTANT STAPH AUREUS... Complete 04/03/20 14:34 Nasopharynx SARS-CoV-2 RdRp Gene Assay - Final Complete Laboratory Tests 04/04/20 16:39: POC Whole Blood Glucose [Pending] 04/04/20 19:00: Troponin I 0.013 10/2/20 20:51: POC Whole Blood Glucose 368H 04/05/20 00:38: POC Whole Blood Glucose 333H 04/05/20 03:00: White Blood Count 6.2, Red Blood Count 4.59, Hemoglobin 13.1, Hematocrit 38.9, Mean Corpuscular Volume 85, Mean Corpuscular Hemoglobin 28.6, Mean Corpuscular Hemoglobin Concent 33.7, Red Cell Distribution Width 12.9, Platelet Count 167, Mean Platelet Volume 8.6, Neutrophils (%) (Auto) 59.2, Lymphocytes (%) (Auto) 30.8, Monocytes (%) (Auto) 6.7, Eosinophils (%) (Auto) 2.1, Basophils (%) (Auto) 1.1, Erythrocyte Sedimentation Rate 18, Sodium Level 135L, Potassium Level 4.0, Chloride Level 104, Carbon Dioxide Level 24, Anion Gap 8, Blood Urea Nitrogen 9, Creatinine 0.6, Estimat Glomerular Filtration Rate > 60, Glucose Level 360#H, Calcium Level 8.2L, Phosphorus Level 2.7, Magnesium Level 1.7L, Total Bilirubin 0.3, Aspartate Amino Transf (AST/SGOT) 17, Alanine Aminotransferase (ALT/SGPT) 15, Alkaline Phosphatase 98, Troponin I 0.001, C-Reactive Protein, Quantitative 1.7H, Pro-B-Type Natriuretic Peptide 613H, Total Protein 4.8L, Albumin 2.2L, Globulin 2.6, Albumin/Globulin Ratio 0.8L 04/05/20 05:52: POC Whole Blood Glucose 318H 04/05/20 11:47: POC Whole Blood Glucose 207H Current Medications Medications (Trade) Dose Ordered Sig/Nathan Route PRN Reason Start Time Stop Time Status Last Admin Dose Admin Acetaminophen (Tylenol) 650 mg Q4H PRN ORAL Fever 04/03/20 17:00 05/03/20 16:59 Albuterol/ Ipratropium (Albuterol/ Ipratropium) 3 ml Q4H PRN HHN Shortness of Breath 04/03/20 17:00 04/08/20 16:59 Clindamycin HCl (Cleocin) 450 mg EVERY 6 HOURS ORAL 04/04/20 18:00 04/11/20 17:59 04/05/20 12:16 Dextrose (Dextrose 50%) 25 ml Q30M PRN IV Hypoglycemia 04/05/20 08:00 07/04/20 07:59 Dextrose (Dextrose 50%) 50 ml Q30M PRN IV Hypoglycemia 04/05/20 08:00 07/04/20 07:59 Heparin Sodium (Porcine) (Heparin 5000 units/ml) 5,000 units EVERY 12 HOURS SUBQ 04/03/20 21:00 05/18/20 20:59 04/05/20 08:59 Insulin Aspart (NovoLOG) BEFORE MEALS AND HS SUBQ 04/05/20 11:30 07/04/20 11:29 04/05/20 12:17 Insulin Aspart (NovoLOG) 6 units NOVOTIAC SUBQ 04/05/20 11:50 07/04/20 11:49 04/05/20 12:17 Insulin Detemir (Levemir) 18 units DAILY SUBQ 04/05/20 10:00 07/04/20 09:59 04/05/20 09:57 Iohexol (OMNIPAQUE-300 100ml) 100 ml NOW PRN INJ Radiology Procedure 04/03/20 16:45 04/05/20 16:44 Lisinopril (ZestriL) 5 mg DAILY ORAL 04/05/20 09:00 05/05/20 08:59 04/05/20 08:58 Lorazepam (Ativan 2mg/ml 1ml) 2 mg Q2H PRN IV agitation 04/03/20 17:00 04/10/20 16:59 Morphine Sulfate (Morphine Sulfate) 4 mg Q4H PRN IVP Severe Pain (Pain Scale 7-10) 04/03/20 17:00 04/10/20 16:59 Nitroglycerin (Ntg) 0.4 mg Q5M PRN SL Prn Chest Pain 04/03/20 17:00 05/03/20 16:59 Ondansetron HCl (Zofran) 4 mg Q6H PRN IVP Nausea & Vomiting 04/03/20 17:00 05/03/20 16:59 Polyethylene Glycol (Miralax) 17 gm DAILYPRN PRN ORAL Constipation 04/03/20 17:00 05/03/20 16:59 Assessment/Plan Problems: (1) Hyperglycemia (2) Chest pain (3) Homelessness Assessment/Plan eating well no new complains iv fluids insulin coverage echo troponin cardio and endo to see social service for homelessness. Angeline Saunders MD Apr 05, 2020 15:08
--- NOTE | 2020-04-05 16:54 | Cardiac Electrophysiology PN ---
Assessment/Plan Assessment/Plan 1. Chest pain. Patient with glucose of more than 1000 and hypertension. Ruled out for [place] protocol. Echocardiogram EF 65% 2. Uncontrolled hypertension. On lisinopril 5 mg daily that is beneficial in view of the patient's diabetes. 3. Uncontrolled diabetes with glucose of more than 1000. Further evaluation by Dr. Dinh. On insulin. 4. Cellulitis with lower pelvic lesions. Started on clindamycin per ID. Subjective Subjective Alert in NAd. No CP Objective Last 24 Hour Vital Signs Date Time Temp Pulse Resp B/P (MAP) Pulse Ox O2 Delivery O2 Flow Rate FiO2 04/05/20 09:00 Room Air 04/05/20 08:58 116/62 04/05/20 08:00 99.1 66 18 116/62 (80) 93 04/05/20 08:00 64 04/05/20 04:00 97.7 62 19 126/65 (85) 95 04/05/20 04:00 55 04/05/20 00:00 54 04/05/20 00:00 97.8 58 19 127/75 (92) 93 04/04/20 21:00 Room Air 04/04/20 20:00 64 04/04/20 20:00 97.7 62 20 116/62 (80) 95 Intake and Output 04/04/20 04/05/20 19:00 07:00 Intake Total 240 ml 350 ml Balance 240 ml 350 ml Intake Oral 240 ml 350 ml # Voids 3 1 Laboratory Tests Test 04/04/20 19:00 04/04/20 20:51 04/05/20 00:38 04/05/20 03:00 Troponin I 0.013 ng/mL (0.000-0.056) 0.001 ng/mL (0.000-0.056) POC Whole Blood Glucose 368 MG/DL (74-106) H 333 MG/DL (74-106) H White Blood Count 6.2 K/UL (4.8-10.8) Red Blood Count 4.59 M/UL (4.20-5.40) Hemoglobin 13.1 G/DL (12.0-16.0) Hematocrit 38.9 % (37.0-47.0) Mean Corpuscular Volume 85 FL (80-99) Mean Corpuscular Hemoglobin 28.6 PG (27.0-31.0) Mean Corpuscular Hemoglobin Concent 33.7 G/DL (32.0-36.0) Red Cell Distribution Width 12.9 % (11.6-14.8) Platelet Count 167 K/UL (150-450) Mean Platelet Volume 8.6 FL (6.5-10.1) Neutrophils (%) (Auto) 59.2 % (45.0-75.0) Lymphocytes (%) (Auto) 30.8 % (20.0-45.0) Monocytes (%) (Auto) 6.7 % (1.0-10.0) Eosinophils (%) (Auto) 2.1 % (0.0-3.0) Basophils (%) (Auto) 1.1 % (0.0-2.0) Erythrocyte Sedimentation Rate 18 MM/HR (0-30) Sodium Level 135 MMOL/L (136-145) L Potassium Level 4.0 MMOL/L (3.5-5.1) Chloride Level 104 MMOL/L (98-107) Carbon Dioxide Level 24 MMOL/L (21-32) Anion Gap 8 mmol/L (5-15) Blood Urea Nitrogen 9 mg/dL (7-18) Creatinine 0.6 MG/DL (0.55-1.30) Estimat Glomerular Filtration Rate > 60 mL/min (>60) Glucose Level 360 MG/DL (74-106) #H Calcium Level 8.2 MG/DL (8.5-10.1) L Phosphorus Level 2.7 MG/DL (2.5-4.9) Magnesium Level 1.7 MG/DL (1.8-2.4) L Total Bilirubin 0.3 MG/DL (0.2-1.0) Aspartate Amino Transf (AST/SGOT) 17 U/L (15-37) Alanine Aminotransferase (ALT/SGPT) 15 U/L (12-78) Alkaline Phosphatase 98 U/L (46-116) C-Reactive Protein, Quantitative 1.7 mg/dL (0.00-0.90) H Pro-B-Type Natriuretic Peptide 613 pg/mL (0-125) H Total Protein 4.8 G/DL (6.4-8.2) L Albumin 2.2 G/DL (3.4-5.0) L Globulin 2.6 g/dL Albumin/Globulin Ratio 0.8 (1.0-2.7) L Test 04/05/20 05:52 04/05/20 11:47 04/05/20 16:43 POC Whole Blood Glucose 318 MG/DL (74-106) H 207 MG/DL (74-106) H 263 MG/DL (74-106) H Microbiology Date/Time Source Procedure Growth Status 04/03/20 18:00 Blood Blood Culture - Preliminary Resulted 04/03/20 17:45 Blood Blood Culture - Preliminary NO GROWTH AFTER 24 HOURS Resulted 04/03/20 16:36 Rectum - Final NO CARBAPENEM-RESISTANT ENTEROBACTERI... Complete 04/03/20 16:36 Nasal Nares MRSA Culture - Final NO METHICILLIN RESISTANT STAPH AUREUS... Complete 04/03/20 14:34 Nasopharynx SARS-CoV-2 RdRp Gene Assay - Final Complete Objective HEAD AND NECK: Showed no JVD. LUNGS: Clear. CARDIOVASCULAR: Shows regular S1 and S2 with no gallop or murmur. ABDOMEN: Soft. EXTREMITIES: No pitting edema. Hilario Conn MD Apr 05, 2020 16:54
--- NOTE | 2020-04-05 19:30 | NUR ---
NURSE NOTES: Received report from JEREMY Adler. Patient in stable condition.
--- NOTE | 2020-04-05 19:33 | NUR ---
HAND-OFF: Report given to JEREMY White. pt is stable condition.
--- NOTE | 2020-04-05 20:03 | NUR ---
NURSE NOTES: Patient having hypotensive blood pressure reading 87/62. Decrease blood pressure from patient's baseline blood pressure. Nonpharmacological intervention provided. Called MD to notify. Was not able to reach the MD at this time. Left a message. Will wait for a call back.
--- NOTE | 2020-04-05 20:20 | NUR ---
NURSE NOTES: Dr. Conn reached back with new order of NS 500mls bolus x 1 for patient's hypotension. Will carry out the order as given and continue to monitor the patient. Patient currently asymptomatic.
--- NOTE | 2020-04-05 22:00 | NUR ---
NURSE NOTES: Patient continues to be asymptomatic but hypotensive after the bolus order. Reached Dr. Conn regarding the patient's condition. Dr. Conn called back with new order of NS @ 80mls/hr until the AM. Will carry out the order as given and continue to monitor the patient.
--- NOTE | 2020-04-05 22:20 | NUR ---
NURSE NOTES: Patient knows her name, date of , and where she is. Breathing unlabored on room air without distress or discomfort. Denies pain at this time. IV noted on left hand intact and patent. Patient weak but able to ambulate to the restroom with supervision. Patient refuses staff assist and utilizes surrounding furniture for assist, stating "It's okay. I don't need help". Re-educated patient about high fall risk and needing staff occupational therapist. Patient verbalized understanding. Will provide close monitoring, supervision, and itinerant teacher assistant as much as possible. Bed placed at the lowest with alarm, brake, and siderails up for patient safety. Call light placed within reach and encourage to use. Will continue to monitor and provide care as ordered.
[2020-04-06] VITALS: BP 105/65
[2020-04-06 04:00] VITALS: BP 92/53
[2020-04-06] MEDS: NovoLOG Insulin Flexpen SUBQ SCH ×7 (05:46→20:07)
[2020-04-06] MEDS: Clindamycin 150mg cap ORAL SCH ×4 (05:52→23:16)
--- NOTE | 2020-04-06 07:43 | NUR ---
NURSE HAND-OFF: Important Events on Shift: Asymptomatic hypotensive blood pressure. Informed . Carried out new order as given. Patient currently stable. Patient Status:Stable Diet:CCHO (Medium) Pending Orders:None Pending Results/Labs:None Pending MD notification:None Latest Vital Signs: Temperature 98.1 , Pulse 57 , B/P 92 /53 , Respiratory Rate 18 , O2 SAT 94 , Room Air, O2 Flow Rate . Vital Sign Comment:Stable Latest Grajeda Fall Score: 30 Fall Risk: Medium Risk Safety Measures: Call light Within Reach, Bed Alarm Zone 2, Side Rails Side Rails x2, Bed position Low and Locked. Fall Precautions: Yellow Socks Yellow Gown Door Sign Patient Fall Education Report given to JEREMY Sher.
[2020-04-06 07:45] LABS: ANION GAP 5 mmol/L (5-15); BLOOD UREA NITROGEN 7 mg/dL (7-18); CARBON DIOXIDE 27 MMOL/L (21-32); CHLORIDE 109 MMOL/L (98-107); CREATININE 0.7 MG/DL (0.55-1.30); POTASSIUM 3.6 MMOL/L (3.5-5.1); SODIUM 140 MMOL/L (136-145)
[2020-04-06 07:47] LABS: BASOPHILS % (AUTO) 1.1 % (0.0-2.0); EOSINOPHILS % (AUTO) 1.6 % (0.0-3.0); HEMATOCRIT 37.3 % (37.0-47.0); HEMOGLOBIN 13.1 G/DL (12.0-16.0); LYMPHOCYTES % (AUTO) 29.6 % (20.0-45.0); MEAN CORPUSCULAR VOLUME 83 FL (80-99); MONOCYTES % (AUTO) 7.3 % (1.0-10.0); NEUTROPHILS % (AUTO) 60.4 % (45.0-75.0); PLATELET COUNT 174 K/UL (150-450); RED BLOOD COUNT 4.51 M/UL (4.20-5.40); RED CELL DISTRIBUTION WIDTH 12.7 % (11.6-14.8); WHITE BLOOD COUNT 6.5 K/UL (4.8-10.8)
--- NOTE | 2020-04-06 07:48 | NUR ---
NURSE NOTES: Received report from Minsu,RN. Pt awake in bed comfortably. alert and oriented, able to make needs known. Breathing even and unlabored. Denies any pain at this time. IV intact and patent. Pt on high fall risk precaution. Educated pt to use call light for assistance. Pt verbalized understanding. Side rail upx3 Bed in low position, locked alarm on. Call light within reach. Will continue to monitor.
[2020-04-06 08:00] VITALS: BP 98/58
[2020-04-06] MEDS: Heparin 5000 units/ml inj SUBQ SCH ×2 (08:25→20:07)
[2020-04-06] MEDS: Levemir Flexpen SUBQ SCH (08:26)
[2020-04-06] MEDS: Lisinopril 2.5mg tab ORAL SCH (08:33)
--- NOTE | 2020-04-06 11:37 | General Progress Note ---
Subjective Allergies: Coded Allergies: No Known Allergies (Unverified , 04/03/20) All Systems: reviewed and negative except above Subjective events noted interval notes reviewed glucose value improved complaining of leg pain Item Value Date Time Bedside Blood Glucose 134 mg/dl H 04/06/20 0826 Bedside Blood Glucose 134 mg/dl H 04/06/20 0601 Bedside Blood Glucose 144 mg/dl H 04/06/20 0000 Bedside Blood Glucose 330 mg/dl H 04/05/20 2100 Bedside Blood Glucose 263 mg/dl H 04/05/20 1800 Bedside Blood Glucose 207 mg/dl H 04/05/20 1217 Objective Last 24 Hour Vital Signs Date Time Temp Pulse Resp B/P (MAP) Pulse Ox O2 Delivery O2 Flow Rate FiO2 04/06/20 09:00 Room Air 04/06/20 08:33 98/59 04/06/20 08:00 98.4 65 16 98/58 (71) 96 04/06/20 04:00 57 92/53 (66) 04/06/20 00:00 98.1 64 18 105/65 (78) 04/05/20 22:00 89/60 (70) 04/05/20 21:00 Room Air 04/05/20 20:00 97.8 66 19 87/62 (70) 94 04/05/20 16:00 98.0 64 18 129/60 (83) 94 04/05/20 12:00 98.3 60 18 121/57 (78) 94 Intake and Output 04/05/20 04/06/20 19:00 07:00 Intake Total 600 ml 1120 ml Balance 600 ml 1120 ml Intake Oral 600 ml 480 ml IV Total 640 ml # Voids 4 8 # Bowel Movements 1 Laboratory Tests 04/05/20 11:47: POC Whole Blood Glucose 207H 04/05/20 16:43: POC Whole Blood Glucose 263H 04/05/20 20:19: POC Whole Blood Glucose 330H 04/06/20 00:06: POC Whole Blood Glucose 144H 04/06/20 05:44: POC Whole Blood Glucose 134H 04/06/20 07:15: White Blood Count 6.5, Red Blood Count 4.51, Hemoglobin 13.1, Hematocrit 37.3, Mean Corpuscular Volume 83, Mean Corpuscular Hemoglobin 29.1, Mean Corpuscular Hemoglobin Concent 35.2, Red Cell Distribution Width 12.7, Platelet Count 174, Mean Platelet Volume 8.6, Neutrophils (%) (Auto) 60.4, Lymphocytes (%) (Auto) 29.6, Monocytes (%) (Auto) 7.3, Eosinophils (%) (Auto) 1.6, Basophils (%) (Auto) 1.1, Sodium Level 140, Potassium Level 3.6, Chloride Level 109H, Carbon Dioxide Level 27, Anion Gap 5, Blood Urea Nitrogen 7, Creatinine 0.7, Estimat Glomerular Filtration Rate > 60, Glucose Level 119#H, Calcium Level 8.0L Height (Feet): 4 Height (Inches): 11.00 Weight (Pounds): 122 General Appearance: no apparent distress Neck: normal alignment Cardiovascular: normal rate Respiratory/Chest: lungs clear Abdomen: normal bowel sounds Pelvis: normal external exam Objective Current Medications Medications (Trade) Dose Ordered Sig/Nathan Route PRN Reason Start Time Stop Time Status Last Admin Dose Admin Acetaminophen (Tylenol) 650 mg Q4H PRN ORAL Fever 04/03/20 17:00 05/03/20 16:59 Albuterol/ Ipratropium (Albuterol/ Ipratropium) 3 ml Q4H PRN HHN Shortness of Breath 04/03/20 17:00 04/08/20 16:59 Clindamycin HCl (Cleocin) 450 mg EVERY 6 HOURS ORAL 04/04/20 18:00 04/11/20 17:59 04/06/20 05:52 Dextrose (Dextrose 50%) 25 ml Q30M PRN IV Hypoglycemia 04/05/20 08:00 07/04/20 07:59 Dextrose (Dextrose 50%) 50 ml Q30M PRN IV Hypoglycemia 04/05/20 08:00 07/04/20 07:59 Heparin Sodium (Porcine) (Heparin 5000 units/ml) 5,000 units EVERY 12 HOURS SUBQ 04/03/20 21:00 05/18/20 20:59 04/06/20 08:25 Insulin Aspart (NovoLOG) BEFORE MEALS AND HS SUBQ 04/05/20 11:30 07/04/20 11:29 04/05/20 20:27 Insulin Aspart (NovoLOG) 6 units NOVOTIAC SUBQ 04/05/20 11:50 07/04/20 11:49 04/06/20 06:01 Insulin Detemir (Levemir) 18 units DAILY SUBQ 04/05/20 10:00 07/04/20 09:59 04/06/20 08:26 Lisinopril (ZestriL) 5 mg DAILY ORAL 04/05/20 09:00 05/05/20 08:59 04/05/20 08:58 Lorazepam (Ativan 2mg/ml 1ml) 2 mg Q2H PRN IV agitation 04/03/20 17:00 04/10/20 16:59 Morphine Sulfate (Morphine Sulfate) 4 mg Q4H PRN IVP Severe Pain (Pain Scale 7-10) 04/03/20 17:00 04/10/20 16:59 Nitroglycerin (Ntg) 0.4 mg Q5M PRN SL Prn Chest Pain 04/03/20 17:00 05/03/20 16:59 Ondansetron HCl (Zofran) 4 mg Q6H PRN IVP Nausea & Vomiting 04/03/20 17:00 05/03/20 16:59 Polyethylene Glycol (Miralax) 17 gm DAILYPRN PRN ORAL Constipation 04/03/20 17:00 05/03/20 16:59 Assessment/Plan Problem List: (1) Hyperglycemia ICD Codes: R73.9 - Hyperglycemia, unspecified SNOMED: 01724133 (2) Chest pain ICD Codes: R07.9 - Chest pain, unspecified SNOMED: 04717741 Assessment/Plan: continue Levemir 18 units daily continue Novolog 6 units ac tid continue Novolog sliding scale ac / hs hypoglycemia protocol in order she will stay on insulin after discharge Rush Dinh MD Apr 06, 2020 11:37
[2020-04-06 11:51] VITALS: BP 109/68
--- NOTE | 2020-04-06 13:07 | Pulmonology Progress Note ---
Subjective ROS Limited/Unobtainable: Yes Constitutional: Reports: no symptoms HEENT: Repors: no symptoms Allergies: Coded Allergies: No Known Allergies (Unverified , 04/03/20) All Systems: reviewed and negative except above Objective Last 24 Hour Vital Signs Date Time Temp Pulse Resp B/P (MAP) Pulse Ox O2 Delivery O2 Flow Rate FiO2 04/06/20 11:51 97.8 60 16 109/68 (82) 98 04/06/20 09:00 Room Air 04/06/20 08:33 98/59 04/06/20 08:00 98.4 65 16 98/58 (71) 96 04/06/20 04:00 57 92/53 (66) 04/06/20 00:00 98.1 64 18 105/65 (78) 04/05/20 22:00 89/60 (70) 04/05/20 21:00 Room Air 04/05/20 20:00 97.8 66 19 87/62 (70) 94 04/05/20 16:00 98.0 64 18 129/60 (83) 94 Intake and Output 04/05/20 04/06/20 19:00 07:00 Intake Total 600 ml 1120 ml Balance 600 ml 1120 ml Intake Oral 600 ml 480 ml IV Total 640 ml # Voids 4 8 # Bowel Movements 1 General Appearance: WD/WN HEENT: normocephalic, atraumatic Respiratory: chest wall non-tender, lungs clear Breasts: no masses Cardiovascular: normal peripheral pulses Abdomen: normal bowel sounds, soft, non tender Genitourinary: normal external genitalia Extremities: no clubbing 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 Complete 04/03/20 16:36 Nasal Nares MRSA Culture - Final NO METHICILLIN RESISTANT STAPH AUREUS... Complete 04/03/20 14:34 Nasopharynx SARS-CoV-2 RdRp Gene Assay - Final Complete Laboratory Tests 04/05/20 16:43: POC Whole Blood Glucose 263H 04/05/20 20:19: POC Whole Blood Glucose 330H 04/06/20 00:06: POC Whole Blood Glucose 144H 04/06/20 05:44: POC Whole Blood Glucose 134H 04/06/20 07:15: White Blood Count 6.5, Red Blood Count 4.51, Hemoglobin 13.1, Hematocrit 37.3, Mean Corpuscular Volume 83, Mean Corpuscular Hemoglobin 29.1, Mean Corpuscular Hemoglobin Concent 35.2, Red Cell Distribution Width 12.7, Platelet Count 174, Mean Platelet Volume 8.6, Neutrophils (%) (Auto) 60.4, Lymphocytes (%) (Auto) 29.6, Monocytes (%) (Auto) 7.3, Eosinophils (%) (Auto) 1.6, Basophils (%) (Auto) 1.1, Sodium Level 140, Potassium Level 3.6, Chloride Level 109H, Carbon Dioxide Level 27, Anion Gap 5, Blood Urea Nitrogen 7, Creatinine 0.7, Estimat Glomerular Filtration Rate > 60, Glucose Level 119#H, Calcium Level 8.0L 04/06/20 11:36: POC Whole Blood Glucose [Pending] Current Medications Medications (Trade) Dose Ordered Sig/Nathan Route PRN Reason Start Time Stop Time Status Last Admin Dose Admin Acetaminophen (Tylenol) 650 mg Q4H PRN ORAL Fever 04/03/20 17:00 05/03/20 16:59 Albuterol/ Ipratropium (Albuterol/ Ipratropium) 3 ml Q4H PRN HHN Shortness of Breath 04/03/20 17:00 04/08/20 16:59 Clindamycin HCl (Cleocin) 450 mg EVERY 6 HOURS ORAL 04/04/20 18:00 04/11/20 17:59 04/06/20 11:49 Dextrose (Dextrose 50%) 25 ml Q30M PRN IV Hypoglycemia 04/05/20 08:00 07/04/20 07:59 Dextrose (Dextrose 50%) 50 ml Q30M PRN IV Hypoglycemia 04/05/20 08:00 07/04/20 07:59 Heparin Sodium (Porcine) (Heparin 5000 units/ml) 5,000 units EVERY 12 HOURS SUBQ 04/03/20 21:00 05/18/20 20:59 04/06/20 08:25 Insulin Aspart (NovoLOG) BEFORE MEALS AND HS SUBQ 04/05/20 11:30 07/04/20 11:29 04/06/20 11:38 Insulin Aspart (NovoLOG) 6 units NOVOTIAC SUBQ 04/05/20 11:50 07/04/20 11:49 04/06/20 11:39 Insulin Detemir (Levemir) 18 units DAILY SUBQ 04/05/20 10:00 07/04/20 09:59 04/06/20 08:26 Lisinopril (ZestriL) 5 mg DAILY ORAL 04/05/20 09:00 05/05/20 08:59 04/05/20 08:58 Lorazepam (Ativan 2mg/ml 1ml) 2 mg Q2H PRN IV agitation 04/03/20 17:00 04/10/20 16:59 Morphine Sulfate (Morphine Sulfate) 4 mg Q4H PRN IVP Severe Pain (Pain Scale 7-10) 04/03/20 17:00 04/10/20 16:59 Nitroglycerin (Ntg) 0.4 mg Q5M PRN SL Prn Chest Pain 04/03/20 17:00 05/03/20 16:59 Ondansetron HCl (Zofran) 4 mg Q6H PRN IVP Nausea & Vomiting 04/03/20 17:00 05/03/20 16:59 Polyethylene Glycol (Miralax) 17 gm DAILYPRN PRN ORAL Constipation 04/03/20 17:00 05/03/20 16:59 Assessment/Plan Problems: (1) Hyperglycemia (2) Chest pain (3) Homelessness Assessment/Plan pt/ot ordered eating well no new complains iv fluids insulin coverage [facility] social service for homelessness. Angeline Saunders MD Apr 06, 2020 13:07
[2020-04-06 16:00] VITALS: BP 114/69
--- NOTE | 2020-04-06 16:07 | Surgery Progress Note ---
Surgery Progress Note Subjective Symptoms: improved, tolerating diet, passing flatus, BM, pain decreased Objective Last 24 Hour Vital Signs Date Time Temp Pulse Resp B/P (MAP) Pulse Ox O2 Delivery O2 Flow Rate FiO2 04/06/20 11:51 97.8 60 16 109/68 (82) 98 04/06/20 09:00 Room Air 04/06/20 08:33 98/59 04/06/20 08:00 98.4 65 16 98/58 (71) 96 04/06/20 04:00 57 92/53 (66) 04/06/20 00:00 98.1 64 18 105/65 (78) 04/05/20 22:00 89/60 (70) 04/05/20 21:00 Room Air 04/05/20 20:00 97.8 66 19 87/62 (70) 94 I&O Intake and Output 04/05/20 04/06/20 19:00 07:00 Intake Total 600 ml 1120 ml Balance 600 ml 1120 ml Intake Oral 600 ml 480 ml IV Total 640 ml # Voids 4 8 # Bowel Movements 1 Dressing: dry Wound: clean Cardiovascular: RSR Respiratory: clear Abdomen: non-tender, present bowel sounds Extremities: no edema, no tenderness, no cyanosis Laboratory Tests Test 04/05/20 16:43 04/05/20 20:19 04/06/20 00:06 04/06/20 05:44 POC Whole Blood Glucose 263 MG/DL (74-106) H 330 MG/DL (74-106) H 144 MG/DL (74-106) H 134 MG/DL (74-106) H Test 04/06/20 07:15 04/06/20 11:36 White Blood Count 6.5 K/UL (4.8-10.8) Red Blood Count 4.51 M/UL (4.20-5.40) Hemoglobin 13.1 G/DL (12.0-16.0) Hematocrit 37.3 % (37.0-47.0) Mean Corpuscular Volume 83 FL (80-99) Mean Corpuscular Hemoglobin 29.1 PG (27.0-31.0) Mean Corpuscular Hemoglobin Concent 35.2 G/DL (32.0-36.0) Red Cell Distribution Width 12.7 % (11.6-14.8) Platelet Count 174 K/UL (150-450) Mean Platelet Volume 8.6 FL (6.5-10.1) Neutrophils (%) (Auto) 60.4 % (45.0-75.0) Lymphocytes (%) (Auto) 29.6 % (20.0-45.0) Monocytes (%) (Auto) 7.3 % (1.0-10.0) Eosinophils (%) (Auto) 1.6 % (0.0-3.0) Basophils (%) (Auto) 1.1 % (0.0-2.0) Sodium Level 140 MMOL/L (136-145) Potassium Level 3.6 MMOL/L (3.5-5.1) Chloride Level 109 MMOL/L (98-107) H Carbon Dioxide Level 27 MMOL/L (21-32) Anion Gap 5 mmol/L (5-15) Blood Urea Nitrogen 7 mg/dL (7-18) Creatinine 0.7 MG/DL (0.55-1.30) Estimat Glomerular Filtration Rate > 60 mL/min (>60) Glucose Level 119 MG/DL (74-106) #H Calcium Level 8.0 MG/DL (8.5-10.1) L POC Whole Blood Glucose Pending Plan Problems: (1) Pelvic cellulitis in female Assessment & Plan: Groin area has two abscess wounds with cellulitis. Distal wound cellulitis 11.3x1.4x0.2 with dry black eschar at apex of wound bed, moist white edges with small amount serosanguineous drainage red induration kristal wound skin. Proximal abscess wound dry black eschar, moist edges with small amount serosanguineous drainage periwound also red induration noted. Both wounds dressed with Thera honey and Optifoam. CT reviewed no fluid collection noted likely prior abscess now with cellulitis and wound cont abx local wound care as above bowel care improved cont care plan will follow with eaxm and recs Liver: Diffuse fatty infiltration of the liver is noted. The liver and the spleen enhance uniformly. Gallbladder and bile ducts: See below. Pancreas: See below. Spleen: See above. Adrenals: The adrenal glands, the head, body, tail of the pancreas and the gallbladder are unremarkable. Kidneys and ureters: Both kidneys are shown to excrete contrast bilaterally without renal calculus or hydronephrosis per Nonspecific stranding about the perinephric spaces. A 1 cm complex cyst upper pole region of the right kidney which requires further workup for evaluation. Stomach and bowel: The stomach is underdistended. Moderate quantity of stool throughout the colon. No evidence of bowel obstruction. The rectosigmoid is distended with stool measuring 10.6 x 11.8 x 8.2 cm compatible with fecal impaction. No mucosal thickening. PELVIS: Appendix: Appendix is seen on coronal images 20 and 21 and is unremarkable. Bladder: The bladder is distended. Reproductive: The uterus and adnexal regions are unremarkable. Uterus is unremarkable. ABDOMEN and PELVIS: Intraperitoneal space: Unremarkable. No free air. No significant fluid collection. Bones/joints: Acute nondisplaced fracture of the posterior lateral aspect of the left 10th rib. Moderate degenerative disc disease of the spinal:. Moderate to severe osteoarthritic changes about the sacroiliac joints. Alignment of the visualized track the lumbar spine is unremarkable. Sacrum and coccyx are grossly unremarkable. Soft tissues: Ischiorectal fat is clean. Inflammatory changes are noted about the left buttocks region, partially visualized, possibly on the basis of cellulitis. Vasculature: Flow is demonstrated within the celiac, SMA, the renal arteries, and FAVIAN. Atherosclerotic disease of the abdominal aorta without change in caliber. No abdominal aortic aneurysm. Lymph nodes: Unremarkable. No enlarged lymph nodes. Other findings: Probable areas of scarring. No compression deformities. IMPRESSION: 1. Small hiatal hernia probable distal esophagitis. 2. Atypical pneumonia such as Covid-19 pneumonia cannot be excluded. 3. The gallbladder is unremarkable. 4. Nonspecific stranding about the perinephric spaces. 5. Complex cyst upper pole region of the right kidney. Magnetic resonance imaging of the abdomen is advised for further characterization. 6. The appendix is unremarkable. 7. Moderate quantity of stool throughout the colon. 8. No evidence of bowel obstruction. 9. Findings compatible with fecal impaction. 10. Possible cellulitis about the left buttocks region. Clinical (2) Chest pain (3) Hyperglycemia (4) History of diabetes mellitus Eduardo Pena Apr 06, 2020 16:07
--- NOTE | 2020-04-06 16:36 | NUR ---
PT Note PT luciano completed, treatment initiated. Patient required multiple verbal cues and tactile cues to participate with PT as she is easily distracted. Patient needs physical therapy to increase her muscle strength and balance to improve her safety in mobility and gait. Addendum: 04/06/20 at 1637 by SHELLY GALLOWAY PT Amended: Links added.
--- NOTE | 2020-04-06 17:44 | Internal Med Progress Note ---
Subjective Date of Service: Apr 06, 2020 Physician Name Sharan Almaguer Attending Physician Estuardo Ly MD Current Medications Medications (Trade) Dose Ordered Sig/Nathan Route PRN Reason Start Time Stop Time Status Last Admin Dose Admin Acetaminophen (Tylenol) 650 mg Q4H PRN ORAL Fever 04/03/20 17:00 05/03/20 16:59 Albuterol/ Ipratropium (Albuterol/ Ipratropium) 3 ml Q4H PRN HHN Shortness of Breath 04/03/20 17:00 04/08/20 16:59 Clindamycin HCl (Cleocin) 450 mg EVERY 6 HOURS ORAL 04/04/20 18:00 04/11/20 17:59 04/06/20 11:49 Dextrose (Dextrose 50%) 25 ml Q30M PRN IV Hypoglycemia 04/05/20 08:00 07/04/20 07:59 Dextrose (Dextrose 50%) 50 ml Q30M PRN IV Hypoglycemia 04/05/20 08:00 07/04/20 07:59 Heparin Sodium (Porcine) (Heparin 5000 units/ml) 5,000 units EVERY 12 HOURS SUBQ 04/03/20 21:00 05/18/20 20:59 04/06/20 08:25 Insulin Aspart (NovoLOG) BEFORE MEALS AND HS SUBQ 04/05/20 11:30 07/04/20 11:29 04/06/20 16:41 Insulin Aspart (NovoLOG) 6 units NOVOTIAC SUBQ 04/05/20 11:50 07/04/20 11:49 04/06/20 16:41 Insulin Detemir (Levemir) 18 units DAILY SUBQ 04/05/20 10:00 07/04/20 09:59 04/06/20 08:26 Lisinopril (ZestriL) 5 mg DAILY ORAL 04/05/20 09:00 05/05/20 08:59 04/05/20 08:58 Lorazepam (Ativan 2mg/ml 1ml) 2 mg Q2H PRN IV agitation 04/03/20 17:00 04/10/20 16:59 Morphine Sulfate (Morphine Sulfate) 4 mg Q4H PRN IVP Severe Pain (Pain Scale 7-10) 04/03/20 17:00 04/10/20 16:59 Nitroglycerin (Ntg) 0.4 mg Q5M PRN SL Prn Chest Pain 04/03/20 17:00 05/03/20 16:59 Ondansetron HCl (Zofran) 4 mg Q6H PRN IVP Nausea & Vomiting 04/03/20 17:00 05/03/20 16:59 Polyethylene Glycol (Miralax) 17 gm DAILYPRN PRN ORAL Constipation 04/03/20 17:00 05/03/20 16:59 Allergies: Coded Allergies: No Known Allergies (Unverified , 04/03/20) ROS Limited/Unobtainable: No Subjective 60 YO F admitted with chest pain. Now new onset diabetes and hyperglycemia. Cover for Int Douglas-Dr Ly Objective Last Vital Signs Date Time Temp Pulse Resp B/P (MAP) Pulse Ox O2 Delivery O2 Flow Rate FiO2 04/06/20 16:00 97.9 65 16 114/69 (84) 98 04/06/20 09:00 Room Air Laboratory Tests Test 04/05/20 20:19 04/06/20 00:06 04/06/20 05:44 04/06/20 07:15 POC Whole Blood Glucose 330 MG/DL (74-106) H 144 MG/DL (74-106) H 134 MG/DL (74-106) H White Blood Count 6.5 K/UL (4.8-10.8) Red Blood Count 4.51 M/UL (4.20-5.40) Hemoglobin 13.1 G/DL (12.0-16.0) Hematocrit 37.3 % (37.0-47.0) Mean Corpuscular Volume 83 FL (80-99) Mean Corpuscular Hemoglobin 29.1 PG (27.0-31.0) Mean Corpuscular Hemoglobin Concent 35.2 G/DL (32.0-36.0) Red Cell Distribution Width 12.7 % (11.6-14.8) Platelet Count 174 K/UL (150-450) Mean Platelet Volume 8.6 FL (6.5-10.1) Neutrophils (%) (Auto) 60.4 % (45.0-75.0) Lymphocytes (%) (Auto) 29.6 % (20.0-45.0) Monocytes (%) (Auto) 7.3 % (1.0-10.0) Eosinophils (%) (Auto) 1.6 % (0.0-3.0) Basophils (%) (Auto) 1.1 % (0.0-2.0) Sodium Level 140 MMOL/L (136-145) Potassium Level 3.6 MMOL/L (3.5-5.1) Chloride Level 109 MMOL/L (98-107) H Carbon Dioxide Level 27 MMOL/L (21-32) Anion Gap 5 mmol/L (5-15) Blood Urea Nitrogen 7 mg/dL (7-18) Creatinine 0.7 MG/DL (0.55-1.30) Estimat Glomerular Filtration Rate > 60 mL/min (>60) Glucose Level 119 MG/DL (74-106) #H Calcium Level 8.0 MG/DL (8.5-10.1) L Test 04/06/20 11:36 04/06/20 16:33 POC Whole Blood Glucose Pending Pending Microbiology Date/Time Source Procedure Growth Status 04/03/20 18:00 Blood Blood Culture - Preliminary Gram Positive Cocci Resulted 04/03/20 17:45 Blood Blood Culture - Preliminary NO GROWTH AFTER 24 HOURS Resulted Intake and Output 04/05/20 04/06/20 19:00 07:00 Intake Total 600 ml 1120 ml Balance 600 ml 1120 ml Intake Oral 600 ml 480 ml IV Total 640 ml # Voids 4 8 # Bowel Movements 1 Objective PHYSICAL EXAMINATION: GENERAL: The patient is awake and responsive, in no acute distress. HEAD AND NECK: Pupils are reactive to light. Extraocular movements are intact. Neck was supple. No JVD. LUNGS: Good air entry. No wheeze or rales. HEART: Reveals S1 and S2. Regular rhythm. No gallops. ABDOMEN: Soft, nondistended, and nontender. Positive bowel sounds. Pelvic area has an ulceration. EXTREMITIES: No cyanosis, clubbing, or edema. NEUROLOGIC: Cranial nerves II through XII are grossly intact. Motor is 5/5 in all extremities. Assessment/Plan Assessment/Plan ASSESSMENT: 1. A new onset diabetes with DKA. 2. Hypertension. 3. Cellulitis of the pelvic area. 4. Hyponatremia. PLAN: 1. Admit the patient to med/surg unit. 2. Dr. Rush Dinh = Endocrinology 3. Dr. Conn = Cardiology 4. Dr. Saunders = Pulmonary Critical Care 5. Dr. Pena = Surgery/Wound Clinic 6. Dr. Montes = Infectious Disease. 7. ABX= clindamycin. 8. Monitor blood glucose level closely. 9. Code status is Full Code 10. DVT prophylaxis with heparin subcutaneous. Sharan Almaguer MD Apr 06, 2020 17:44
--- NOTE | 2020-04-06 17:59 | Cardiac Electrophysiology PN ---
Assessment/Plan Assessment/Plan 1. Chest pain. Patient with glucose of more than 1000 and hypertension. Ruled out for MA protocol. EF 65% 2. Uncontrolled hypertension. On lisinopril 5 mg daily 3. Uncontrolled diabetes with glucose of more than 1000. Further evaluation by Dr. Dinh. On insulin. 4. Cellulitis with lower pelvic lesions. On clindamycin per ID. Subjective Subjective Alert in NAD. No CP or SOB Objective Last 24 Hour Vital Signs Date Time Temp Pulse Resp B/P (MAP) Pulse Ox O2 Delivery O2 Flow Rate FiO2 04/06/20 16:00 97.9 65 16 114/69 (84) 98 04/06/20 11:51 97.8 60 16 109/68 (82) 98 04/06/20 09:00 Room Air 04/06/20 08:33 98/59 04/06/20 08:00 98.4 65 16 98/58 (71) 96 04/06/20 04:00 57 92/53 (66) 04/06/20 00:00 98.1 64 18 105/65 (78) 04/05/20 22:00 89/60 (70) 04/05/20 21:00 Room Air 04/05/20 20:00 97.8 66 19 87/62 (70) 94 Intake and Output 04/05/20 04/06/20 19:00 07:00 Intake Total 600 ml 1120 ml Balance 600 ml 1120 ml Intake Oral 600 ml 480 ml IV Total 640 ml # Voids 4 8 # Bowel Movements 1 Laboratory Tests Test 04/05/20 20:19 04/06/20 00:06 04/06/20 05:44 04/06/20 07:15 POC Whole Blood Glucose 330 MG/DL (74-106) H 144 MG/DL (74-106) H 134 MG/DL (74-106) H White Blood Count 6.5 K/UL (4.8-10.8) Red Blood Count 4.51 M/UL (4.20-5.40) Hemoglobin 13.1 G/DL (12.0-16.0) Hematocrit 37.3 % (37.0-47.0) Mean Corpuscular Volume 83 FL (80-99) Mean Corpuscular Hemoglobin 29.1 PG (27.0-31.0) Mean Corpuscular Hemoglobin Concent 35.2 G/DL (32.0-36.0) Red Cell Distribution Width 12.7 % (11.6-14.8) Platelet Count 174 K/UL (150-450) Mean Platelet Volume 8.6 FL (6.5-10.1) Neutrophils (%) (Auto) 60.4 % (45.0-75.0) Lymphocytes (%) (Auto) 29.6 % (20.0-45.0) Monocytes (%) (Auto) 7.3 % (1.0-10.0) Eosinophils (%) (Auto) 1.6 % (0.0-3.0) Basophils (%) (Auto) 1.1 % (0.0-2.0) Sodium Level 140 MMOL/L (136-145) Potassium Level 3.6 MMOL/L (3.5-5.1) Chloride Level 109 MMOL/L (98-107) H Carbon Dioxide Level 27 MMOL/L (21-32) Anion Gap 5 mmol/L (5-15) Blood Urea Nitrogen 7 mg/dL (7-18) Creatinine 0.7 MG/DL (0.55-1.30) Estimat Glomerular Filtration Rate > 60 mL/min (>60) Glucose Level 119 MG/DL (74-106) #H Calcium Level 8.0 MG/DL (8.5-10.1) L Test 04/06/20 11:36 04/06/20 16:33 POC Whole Blood Glucose Pending Pending Microbiology Date/Time Source Procedure Growth Status 04/03/20 18:00 Blood Blood Culture - Preliminary Gram Positive Cocci Resulted Objective HEAD AND NECK: Showed no JVD. LUNGS: Clear. CARDIOVASCULAR: Shows regular S1 and S2 with no gallop or murmur. ABDOMEN: Soft. EXTREMITIES: No pitting edema. Hilario Conn MD Apr 06, 2020 17:59
--- NOTE | 2020-04-06 19:24 | NUR ---
NURSE HAND-OFF: Important Events on Shift:[PT eval., Wound dressing changed] Patient Status: [stable] Diet: [CCHO medium] Pending Orders: [] Pending Results/Labs:[] Pending MD notification:[] Latest Vital Signs: Temperature 97.9 , Pulse 65 , B/P 114 /69 , Respiratory Rate 16 , O2 SAT 98 , Room Air, O2 Flow Rate . Vital Sign Comment: [stable] Latest Grajeda Fall Score: 30 Fall Risk: Medium Risk Safety Measures: Call light Within Reach, Bed Alarm Zone 2, Side Rails Side Rails x2, Bed position Low and Locked. Fall Precautions: Yellow Socks Yellow Gown Door Sign Patient Fall Education Report given to [JEREMY Christine].
--- NOTE | 2020-04-06 19:48 | NUR ---
NURSE NOTES: Received patient awake, ambulating in room, steady gait, patient wearing non slip socks, no s/s of acute distress. No IV access. Needs attended to at this time.
[2020-04-06 20:34] VITALS: BP 112/62
--- NOTE | 2020-04-06 21:12 | NUR ---
NURSE NOTES: Mons pubis dressing changed. Patient tolerated well.
[2020-04-07] VITALS: BP 107/57
[2020-04-07] MEDS: Clindamycin 150mg cap ORAL SCH ×2 (05:19→11:07)
[2020-04-07 06:13] LABS: BASOPHILS % (AUTO) 1.5 % (0.0-2.0); EOSINOPHILS % (AUTO) 1.5 % (0.0-3.0); HEMATOCRIT 37.1 % (37.0-47.0); HEMOGLOBIN 12.4 G/DL (12.0-16.0); LYMPHOCYTES % (AUTO) 31.5 % (20.0-45.0); MEAN CORPUSCULAR VOLUME 85 FL (80-99); MONOCYTES % (AUTO) 7.7 % (1.0-10.0); NEUTROPHILS % (AUTO) 57.8 % (45.0-75.0); PLATELET COUNT 158 K/UL (150-450); RED BLOOD COUNT 4.38 M/UL (4.20-5.40); RED CELL DISTRIBUTION WIDTH 13.1 % (11.6-14.8); WHITE BLOOD COUNT 4.8 K/UL (4.8-10.8)
[2020-04-07 06:15] LABS: ANION GAP 4 mmol/L (5-15); BLOOD UREA NITROGEN 9 mg/dL (7-18); CALCIUM 8.1 MG/DL (8.5-10.1); CARBON DIOXIDE 26 MMOL/L (21-32); CHLORIDE 109 MMOL/L (98-107); CREATININE 0.7 MG/DL (0.55-1.30); POTASSIUM 4.2 MMOL/L (3.5-5.1); SODIUM 139 MMOL/L (136-145)
[2020-04-07] MEDS: NovoLOG Insulin Flexpen SUBQ SCH ×4 (06:28→11:46)
--- NOTE | 2020-04-07 07:16 | NUR ---
HAND-OFF: Report given to JEREMY akers.
--- NOTE | 2020-04-07 07:28 | NUR ---
NURSE NOTES: Patient is in bed awake and able to verbalize needs. AOx4. Stable. Patient denies pain or SOB. No visible signs of distress noted at this time. Patient instructed to use call light for assistance, verbalized understanding. Patient is in bed in locked and lowest position with call light within reach. All safety measures provided. Will continue to monitor.
--- NOTE | 2020-04-07 07:34 | General Progress Note ---
Subjective Allergies: Coded Allergies: No Known Allergies (Unverified , 04/03/20) All Systems: reviewed and negative except above Subjective events noted interval notes reviewed fasting glucose is elevated Item Value Date Time Bedside Blood Glucose 302 mg/dl H 04/07/20 0628 Bedside Blood Glucose 175 mg/dl H 04/06/20 2100 Bedside Blood Glucose 165 mg/dl H 04/06/20 1800 Bedside Blood Glucose 163 mg/dl H 04/06/20 1200 Bedside Blood Glucose 134 mg/dl H 04/06/20 0826 Bedside Blood Glucose 134 mg/dl H 04/06/20 0601 Bedside Blood Glucose 144 mg/dl H 04/06/20 0000 Objective Last 24 Hour Vital Signs Date Time Temp Pulse Resp B/P (MAP) Pulse Ox O2 Delivery O2 Flow Rate FiO2 04/07/20 00:00 97.7 62 17 107/57 (74) 98 04/06/20 21:06 Room Air 04/06/20 20:34 97.5 59 16 112/62 (79) 98 04/06/20 16:00 97.9 65 16 114/69 (84) 98 04/06/20 11:51 97.8 60 16 109/68 (82) 98 04/06/20 09:00 Room Air 04/06/20 08:33 98/59 04/06/20 08:00 98.4 65 16 98/58 (71) 96 Intake and Output 04/06/20 04/07/20 19:00 07:00 Intake Total 1080 ml 450 ml Balance 1080 ml 450 ml Intake Oral 1000 ml 450 ml IV Total 80 ml # Voids 6 4 # Bowel Movements 1 Laboratory Tests 04/06/20 11:36: POC Whole Blood Glucose [Pending] 04/06/20 16:33: POC Whole Blood Glucose [Pending] 04/06/20 19:26: POC Whole Blood Glucose 175H 04/07/20 05:00: White Blood Count 4.8, Red Blood Count 4.38, Hemoglobin 12.4, Hematocrit 37.1, Mean Corpuscular Volume 85, Mean Corpuscular Hemoglobin 28.2, Mean Corpuscular Hemoglobin Concent 33.3, Red Cell Distribution Width 13.1, Platelet Count 158, Mean Platelet Volume 8.0, Neutrophils (%) (Auto) 57.8, Lymphocytes (%) (Auto) 31.5, Monocytes (%) (Auto) 7.7, Eosinophils (%) (Auto) 1.5, Basophils (%) (Auto) 1.5, Sodium Level 139, Potassium Level 4.2, Chloride Level 109H, Carbon Dioxide Level 26, Anion Gap 4L, Blood Urea Nitrogen 9, Creatinine 0.7, Estimat Glomerular Filtration Rate > 60, Glucose Level 302#H, Calcium Level 8.1L Height (Feet): 4 Height (Inches): 11.00 Weight (Pounds): 122 General Appearance: no apparent distress Neck: normal alignment Cardiovascular: normal rate Respiratory/Chest: lungs clear Abdomen: normal bowel sounds Pelvis: normal external exam Edema: no edema noted Arm (L), no edema noted Arm (R), no edema noted Leg (L), no edema noted Leg (R), no edema noted Pedal (L), no edema noted Pedal (R), no edema noted Generalized Objective Current Medications Medications (Trade) Dose Ordered Sig/Nathan Route PRN Reason Start Time Stop Time Status Last Admin Dose Admin Acetaminophen (Tylenol) 650 mg Q4H PRN ORAL Fever 04/03/20 17:00 05/03/20 16:59 Albuterol/ Ipratropium (Albuterol/ Ipratropium) 3 ml Q4H PRN HHN Shortness of Breath 04/03/20 17:00 04/08/20 16:59 Clindamycin HCl (Cleocin) 450 mg EVERY 6 HOURS ORAL 04/04/20 18:00 04/11/20 17:59 04/07/20 05:19 Dextrose (Dextrose 50%) 25 ml Q30M PRN IV Hypoglycemia 04/05/20 08:00 07/04/20 07:59 Dextrose (Dextrose 50%) 50 ml Q30M PRN IV Hypoglycemia 04/05/20 08:00 07/04/20 07:59 Heparin Sodium (Porcine) (Heparin 5000 units/ml) 5,000 units EVERY 12 HOURS SUBQ 04/03/20 21:00 05/18/20 20:59 04/06/20 20:07 Insulin Aspart (NovoLOG) BEFORE MEALS AND HS SUBQ 04/05/20 11:30 07/04/20 11:29 04/07/20 06:28 Insulin Aspart (NovoLOG) 6 units NOVOTIAC SUBQ 04/05/20 11:50 07/04/20 11:49 04/07/20 06:28 Insulin Detemir (Levemir) 18 units DAILY SUBQ 04/05/20 10:00 07/04/20 09:59 04/06/20 08:26 Lisinopril (ZestriL) 5 mg DAILY ORAL 04/05/20 09:00 05/05/20 08:59 04/05/20 08:58 Lorazepam (Ativan 2mg/ml 1ml) 2 mg Q2H PRN IV agitation 04/03/20 17:00 04/10/20 16:59 Morphine Sulfate (Morphine Sulfate) 4 mg Q4H PRN IVP Severe Pain (Pain Scale 7-10) 04/03/20 17:00 04/10/20 16:59 Nitroglycerin (Ntg) 0.4 mg Q5M PRN SL Prn Chest Pain 04/03/20 17:00 05/03/20 16:59 Ondansetron HCl (Zofran) 4 mg Q6H PRN IVP Nausea & Vomiting 04/03/20 17:00 05/03/20 16:59 Polyethylene Glycol (Miralax) 17 gm DAILYPRN PRN ORAL Constipation 04/03/20 17:00 05/03/20 16:59 Assessment/Plan Problem List: (1) Hyperglycemia ICD Codes: R73.9 - Hyperglycemia, unspecified SNOMED: 39370336 (2) Chest pain ICD Codes: R07.9 - Chest pain, unspecified SNOMED: 13148484 Assessment/Plan: increase Levemir to 24 units qam continue Novolog 6 units ac tid continue Novolog sliding scale ac / hs hypoglycemia protocol in order she will stay on insulin after discharge Rush Dinh MD Apr 07, 2020 07:34
[2020-04-07 08:00] VITALS: BP 133/78
[2020-04-07] MEDS: Heparin 5000 units/ml inj SUBQ SCH (08:23)
[2020-04-07] MEDS: Lisinopril 2.5mg tab ORAL SCH (08:24)
[2020-04-07] MEDS ORDERED: Levemir Flexpen SUBQ SCH (09:00)
--- NOTE | 2020-04-07 10:22 | NUR ---
Social Work This SW spoke with workers compensation administrator, Princess ([phone]) at [facility] who will accept patient back there when ready for discharge. Patient will need cab ride to the following address: [address] [place] [address] ([facility]) [facility] [address] (Please call Princess prior to discharge).
[2020-04-07] MEDS ORDERED: ZESTRIL2.5 MG ORAL (11:03)
[2020-04-07] MEDS ORDERED: ASPIRIN325 MG ORAL (11:03)
[2020-04-07] MEDS ORDERED: NOVOLOG100 UNITS1 SUBQ (11:03)
[2020-04-07] MEDS ORDERED: LEVEMIR FL100 UNIT/1 SUBQ (11:03)
[2020-04-07] MEDS ORDERED: CLEOCIN150 MG ORAL (11:03)
--- NOTE | 2020-04-07 11:04 | Pulmonology Progress Note ---
Subjective ROS Limited/Unobtainable: No Constitutional: Reports: no symptoms HEENT: Repors: no symptoms Allergies: Coded Allergies: No Known Allergies (Unverified , 04/03/20) All Systems: reviewed and negative except above Objective Last 24 Hour Vital Signs Date Time Temp Pulse Resp B/P (MAP) Pulse Ox O2 Delivery O2 Flow Rate FiO2 04/07/20 09:00 Room Air 04/07/20 08:24 133/78 04/07/20 08:00 97.2 69 17 133/78 (96) 99 04/07/20 00:00 97.7 62 17 107/57 (74) 98 04/06/20 21:06 Room Air 04/06/20 20:34 97.5 59 16 112/62 (79) 98 04/06/20 16:00 97.9 65 16 114/69 (84) 98 04/06/20 11:51 97.8 60 16 109/68 (82) 98 Intake and Output 04/06/20 04/07/20 19:00 07:00 Intake Total 1080 ml 450 ml Balance 1080 ml 450 ml Intake Oral 1000 ml 450 ml IV Total 80 ml # Voids 6 4 # Bowel Movements 1 General Appearance: WD/WN HEENT: normocephalic, atraumatic Respiratory: chest wall non-tender, lungs clear Breasts: no masses Cardiovascular: normal peripheral pulses Abdomen: normal bowel sounds, soft, non tender Genitourinary: normal external genitalia Extremities: no clubbing 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 Microbiology Date/Time Source Procedure Growth Status 04/05/20 11:50 Blood Blood Culture - Preliminary NO GROWTH AFTER 24 HOURS Resulted 04/05/20 11:40 Blood Blood Culture - Preliminary NO GROWTH AFTER 24 HOURS Resulted Laboratory Tests 04/06/20 11:36: POC Whole Blood Glucose [Pending] 04/06/20 16:33: POC Whole Blood Glucose [Pending] 04/06/20 19:26: POC Whole Blood Glucose 175H 04/07/20 05:00: White Blood Count 4.8, Red Blood Count 4.38, Hemoglobin 12.4, Hematocrit 37.1, Mean Corpuscular Volume 85, Mean Corpuscular Hemoglobin 28.2, Mean Corpuscular Hemoglobin Concent 33.3, Red Cell Distribution Width 13.1, Platelet Count 158, Mean Platelet Volume 8.0, Neutrophils (%) (Auto) 57.8, Lymphocytes (%) (Auto) 31.5, Monocytes (%) (Auto) 7.7, Eosinophils (%) (Auto) 1.5, Basophils (%) (Auto) 1.5, Sodium Level 139, Potassium Level 4.2, Chloride Level 109H, Carbon Dioxide Level 26, Anion Gap 4L, Blood Urea Nitrogen 9, Creatinine 0.7, Estimat Glomerular Filtration Rate > 60, Glucose Level 302#H, Calcium Level 8.1L Current Medications Medications (Trade) Dose Ordered Sig/Nathan Route PRN Reason Start Time Stop Time Status Last Admin Dose Admin Acetaminophen (Tylenol) 650 mg Q4H PRN ORAL Fever 04/03/20 17:00 05/03/20 16:59 Albuterol/ Ipratropium (Albuterol/ Ipratropium) 3 ml Q4H PRN HHN Shortness of Breath 04/03/20 17:00 04/08/20 16:59 Aspirin (ASA) 325 mg ONCE ORAL 04/07/20 10:54 04/07/20 12:00 Clindamycin HCl (Cleocin) 450 mg EVERY 6 HOURS ORAL 04/04/20 18:00 04/11/20 17:59 04/07/20 05:19 Dextrose (Dextrose 50%) 25 ml Q30M PRN IV Hypoglycemia 04/05/20 08:00 07/04/20 07:59 Dextrose (Dextrose 50%) 50 ml Q30M PRN IV Hypoglycemia 04/05/20 08:00 07/04/20 07:59 Heparin Sodium (Porcine) (Heparin 5000 units/ml) 5,000 units EVERY 12 HOURS SUBQ 04/03/20 21:00 05/18/20 20:59 04/07/20 08:23 Insulin Aspart (NovoLOG) BEFORE MEALS AND HS SUBQ 04/05/20 11:30 07/04/20 11:29 04/07/20 06:28 Insulin Aspart (NovoLOG) 6 units NOVOTIAC SUBQ 04/05/20 11:50 07/04/20 11:49 04/07/20 06:28 Insulin Detemir (Levemir) 24 units DAILY SUBQ 04/07/20 09:00 07/04/20 09:59 04/07/20 08:24 Lisinopril (ZestriL) 5 mg DAILY ORAL 04/05/20 09:00 05/05/20 08:59 04/07/20 08:24 Lorazepam (Ativan 2mg/ml 1ml) 2 mg Q2H PRN IV agitation 04/03/20 17:00 04/10/20 16:59 Morphine Sulfate (Morphine Sulfate) 4 mg Q4H PRN IVP Severe Pain (Pain Scale 7-10) 04/03/20 17:00 04/10/20 16:59 Nitroglycerin (Ntg) 0.4 mg Q5M PRN SL Prn Chest Pain 04/03/20 17:00 05/03/20 16:59 Ondansetron HCl (Zofran) 4 mg Q6H PRN IVP Nausea & Vomiting 04/03/20 17:00 05/03/20 16:59 Polyethylene Glycol (Miralax) 17 gm DAILYPRN PRN ORAL Constipation 04/03/20 17:00 05/03/20 16:59 Assessment/Plan Problems: (1) Hyperglycemia (2) Chest pain (3) Homelessness Assessment/Plan pt/ot ordered eating well no new complains insulin coverage Prescription for Levemir, Novolog, aspirin and Clindamycin printed. Angeline Saunders MD Apr 07, 2020 11:04
[2020-04-07 11:52] VITALS: BP 124/74
--- NOTE | 2020-04-07 13:40 | NUR ---
*-* DISCHARGE PLANNED*-* PATIENT HAS BEEN ACCEPTED AND WILL BE DISCHARGED BACK TO: [facility] [address] [place] [id number] PH: [phone] S/W GAGAN WHO STATED PATIENT IS ACCEPTED BACK TO [facility] TRANSPORTATION SET FOR 3PM S/W ADENIKE [id number].
--- NOTE | 2020-04-07 13:58 | Infectious Diseases Prog Note ---
Assessment/Plan 60 yo female who presented to ED with DKA and cellulitis. The patient had some lower pelvic lesions that she has been present for about a week. COVID19 neg x1 (rapid covid pcr neg 04/03) S. hominis bacteremia- contaminant -04/03 Bcx / S. hominis; 04/05 Bcx NTD Pelvic Cellulitis / ulcers- probable prior abscess -04/03 CT abd/p: Small hiatal hernia probable distal esophagitis. Atypical pneumonia such as Covid-19 pneumonia cannot be excluded. The gallbladder is unremarkable. Nonspecific stranding about the perinephric spaces. Complex cyst upper pole region of the right kidney. Magnetic resonance imaging of the abdomen is advised for further characterization. The appendix is unremarkable. Moderate quantity of stool throughout the colon. No evidence of bowel obstruction. Findings compatible with fecal impaction. Possible cellulitis about the left buttocks region. Clinical correlation is advised. Afebrile No Leukocytosis DKA Plan - Clindamycin 450mg QID #4/7-10 days - f/u culture Cultures - Monitor CBC and Temps -Gen sx f/u -wound care per surgical team Thank you for this consult. [facility] will continue to follow Ms. Gonsalves with you during her hospitalization. Subjective Allergies: Coded Allergies: No Known Allergies (Unverified , 04/03/20) Objective Last 24 Hour Vital Signs Date Time Temp Pulse Resp B/P (MAP) Pulse Ox O2 Delivery O2 Flow Rate FiO2 04/07/20 11:52 97.8 60 17 124/74 (91) 98 04/07/20 09:00 Room Air 04/07/20 08:24 133/78 04/07/20 08:00 97.2 69 17 133/78 (96) 99 04/07/20 00:00 97.7 62 17 107/57 (74) 98 04/06/20 21:06 Room Air 04/06/20 20:34 97.5 59 16 112/62 (79) 98 04/06/20 16:00 97.9 65 16 114/69 (84) 98 Height (Feet): 4 Height (Inches): 11.00 Weight (Pounds): 122 General Appearance: WD/WN HEENT: normocephalic, atraumatic Respiratory: chest wall non-tender, lungs clear Breasts: no masses Cardiovascular: normal peripheral pulses Abdomen: normal bowel sounds, soft, non tender Genitourinary: normal external genitalia Extremities: no clubbing 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 Microbiology Date/Time Source Procedure Growth Status 04/05/20 11:50 Blood Blood Culture - Preliminary NO GROWTH AFTER 24 HOURS Resulted 04/05/20 11:40 Blood Blood Culture - Preliminary NO GROWTH AFTER 24 HOURS Resulted Laboratory Tests Test 04/06/20 16:33 04/06/20 19:26 04/07/20 05:00 04/07/20 11:37 POC Whole Blood Glucose Pending 175 MG/DL (74-106) H Pending White Blood Count 4.8 K/UL (4.8-10.8) Red Blood Count 4.38 M/UL (4.20-5.40) Hemoglobin 12.4 G/DL (12.0-16.0) Hematocrit 37.1 % (37.0-47.0) Mean Corpuscular Volume 85 FL (80-99) Mean Corpuscular Hemoglobin 28.2 PG (27.0-31.0) Mean Corpuscular Hemoglobin Concent 33.3 G/DL (32.0-36.0) Red Cell Distribution Width 13.1 % (11.6-14.8) Platelet Count 158 K/UL (150-450) Mean Platelet Volume 8.0 FL (6.5-10.1) Neutrophils (%) (Auto) 57.8 % (45.0-75.0) Lymphocytes (%) (Auto) 31.5 % (20.0-45.0) Monocytes (%) (Auto) 7.7 % (1.0-10.0) Eosinophils (%) (Auto) 1.5 % (0.0-3.0) Basophils (%) (Auto) 1.5 % (0.0-2.0) Sodium Level 139 MMOL/L (136-145) Potassium Level 4.2 MMOL/L (3.5-5.1) Chloride Level 109 MMOL/L (98-107) H Carbon Dioxide Level 26 MMOL/L (21-32) Anion Gap 4 mmol/L (5-15) L Blood Urea Nitrogen 9 mg/dL (7-18) Creatinine 0.7 MG/DL (0.55-1.30) Estimat Glomerular Filtration Rate > 60 mL/min (>60) Glucose Level 302 MG/DL (74-106) #H Calcium Level 8.1 MG/DL (8.5-10.1) L Current Medications Medications (Trade) Dose Ordered Sig/Nathan Route PRN Reason Start Time Stop Time Status Last Admin Dose Admin Acetaminophen (Tylenol) 650 mg Q4H PRN ORAL Fever 04/03/20 17:00 05/03/20 16:59 Albuterol/ Ipratropium (Albuterol/ Ipratropium) 3 ml Q4H PRN HHN Shortness of Breath 04/03/20 17:00 04/08/20 16:59 Clindamycin HCl (Cleocin) 450 mg EVERY 6 HOURS ORAL 04/04/20 18:00 04/11/20 17:59 04/07/20 11:07 Dextrose (Dextrose 50%) 25 ml Q30M PRN IV Hypoglycemia 04/05/20 08:00 07/04/20 07:59 Dextrose (Dextrose 50%) 50 ml Q30M PRN IV Hypoglycemia 04/05/20 08:00 07/04/20 07:59 Heparin Sodium (Porcine) (Heparin 5000 units/ml) 5,000 units EVERY 12 HOURS SUBQ 04/03/20 21:00 05/18/20 20:59 04/07/20 08:23 Insulin Aspart (NovoLOG) BEFORE MEALS AND HS SUBQ 04/05/20 11:30 07/04/20 11:29 04/07/20 11:46 Insulin Aspart (NovoLOG) 6 units NOVOTIAC SUBQ 04/05/20 11:50 07/04/20 11:49 04/07/20 11:45 Insulin Detemir (Levemir) 24 units DAILY SUBQ 04/07/20 09:00 07/04/20 09:59 04/07/20 08:24 Lisinopril (ZestriL) 5 mg DAILY ORAL 04/05/20 09:00 05/05/20 08:59 04/07/20 08:24 Lorazepam (Ativan 2mg/ml 1ml) 2 mg Q2H PRN IV agitation 04/03/20 17:00 04/10/20 16:59 Morphine Sulfate (Morphine Sulfate) 4 mg Q4H PRN IVP Severe Pain (Pain Scale 7-10) 04/03/20 17:00 04/10/20 16:59 Nitroglycerin (Ntg) 0.4 mg Q5M PRN SL Prn Chest Pain 04/03/20 17:00 05/03/20 16:59 Ondansetron HCl (Zofran) 4 mg Q6H PRN IVP Nausea & Vomiting 04/03/20 17:00 05/03/20 16:59 Polyethylene Glycol (Miralax) 17 gm DAILYPRN PRN ORAL Constipation 04/03/20 17:00 05/03/20 16:59 Juany Magana M.D. Apr 07, 2020 13:58
--- NOTE | 2020-04-07 14:28 | Surgery Progress Note ---
Surgery Progress Note Subjective Additional Comments improved walking around no n/v/f/c no complaints Objective Last 24 Hour Vital Signs Date Time Temp Pulse Resp B/P (MAP) Pulse Ox O2 Delivery O2 Flow Rate FiO2 04/07/20 11:52 97.8 60 17 124/74 (91) 98 04/07/20 09:00 Room Air 04/07/20 08:24 133/78 04/07/20 08:00 97.2 69 17 133/78 (96) 99 04/07/20 00:00 97.7 62 17 107/57 (74) 98 04/06/20 21:06 Room Air 04/06/20 20:34 97.5 59 16 112/62 (79) 98 04/06/20 16:00 97.9 65 16 114/69 (84) 98 I&O Intake and Output 04/06/20 04/07/20 19:00 07:00 Intake Total 1080 ml 450 ml Balance 1080 ml 450 ml Intake Oral 1000 ml 450 ml IV Total 80 ml # Voids 6 4 # Bowel Movements 1 Dressing: other Wound: other Cardiovascular: RSR Respiratory: decreased breath sounds Abdomen: soft, non-tender, present bowel sounds Extremities: no tenderness, no cyanosis Laboratory Tests Test 04/06/20 16:33 04/06/20 19:26 04/07/20 05:00 04/07/20 11:37 POC Whole Blood Glucose Pending 175 MG/DL (74-106) H Pending White Blood Count 4.8 K/UL (4.8-10.8) Red Blood Count 4.38 M/UL (4.20-5.40) Hemoglobin 12.4 G/DL (12.0-16.0) Hematocrit 37.1 % (37.0-47.0) Mean Corpuscular Volume 85 FL (80-99) Mean Corpuscular Hemoglobin 28.2 PG (27.0-31.0) Mean Corpuscular Hemoglobin Concent 33.3 G/DL (32.0-36.0) Red Cell Distribution Width 13.1 % (11.6-14.8) Platelet Count 158 K/UL (150-450) Mean Platelet Volume 8.0 FL (6.5-10.1) Neutrophils (%) (Auto) 57.8 % (45.0-75.0) Lymphocytes (%) (Auto) 31.5 % (20.0-45.0) Monocytes (%) (Auto) 7.7 % (1.0-10.0) Eosinophils (%) (Auto) 1.5 % (0.0-3.0) Basophils (%) (Auto) 1.5 % (0.0-2.0) Sodium Level 139 MMOL/L (136-145) Potassium Level 4.2 MMOL/L (3.5-5.1) Chloride Level 109 MMOL/L (98-107) H Carbon Dioxide Level 26 MMOL/L (21-32) Anion Gap 4 mmol/L (5-15) L Blood Urea Nitrogen 9 mg/dL (7-18) Creatinine 0.7 MG/DL (0.55-1.30) Estimat Glomerular Filtration Rate > 60 mL/min (>60) Glucose Level 302 MG/DL (74-106) #H Calcium Level 8.1 MG/DL (8.5-10.1) L Plan Problems: (1) Pelvic cellulitis in female Assessment & Plan: Groin area has two abscess wounds with cellulitis. Distal wound cellulitis 11.3x1.4x0.2 with dry black eschar at apex of wound bed, moist white edges with small amount serosanguineous drainage red induration kristal wound skin. Proximal abscess wound dry black eschar, moist edges with small amount serosanguineous drainage periwound also red induration noted. Both wounds dressed with Thera honey and Optifoam. CT reviewed no fluid collection noted likely prior abscess now with cellulitis and wound cont abx local wound care as above bowel care improved cont care plan will follow with eaxm and recs Liver: Diffuse fatty infiltration of the liver is noted. The liver and the spleen enhance uniformly. Gallbladder and bile ducts: See below. Pancreas: See below. Spleen: See above. Adrenals: The adrenal glands, the head, body, tail of the pancreas and the gallbladder are unremarkable. Kidneys and ureters: Both kidneys are shown to excrete contrast bilaterally without renal calculus or hydronephrosis per Nonspecific stranding about the perinephric spaces. A 1 cm complex cyst upper pole region of the right kidney which requires further workup for evaluation. Stomach and bowel: The stomach is underdistended. Moderate quantity of stool throughout the colon. No evidence of bowel obstruction. The rectosigmoid is distended with stool measuring 10.6 x 11.8 x 8.2 cm compatible with fecal impaction. No mucosal thickening. PELVIS: Appendix: Appendix is seen on coronal images 20 and 21 and is unremarkable. Bladder: The bladder is distended. Reproductive: The uterus and adnexal regions are unremarkable. Uterus is unremarkable. ABDOMEN and PELVIS: Intraperitoneal space: Unremarkable. No free air. No significant fluid collection. Bones/joints: Acute nondisplaced fracture of the posterior lateral aspect of the left 10th rib. Moderate degenerative disc disease of the spinal:. Moderate to severe osteoarthritic changes about the sacroiliac joints. Alignment of the visualized track the lumbar spine is unremarkable. Sacrum and coccyx are grossly unremarkable. Soft tissues: Ischiorectal fat is clean. Inflammatory changes are noted about the left buttocks region, partially visualized, possibly on the basis of cellulitis. Vasculature: Flow is demonstrated within the celiac, SMA, the renal arteries, and FAVIAN. Atherosclerotic disease of the abdominal aorta without change in caliber. No abdominal aortic aneurysm. Lymph nodes: Unremarkable. No enlarged lymph nodes. Other findings: Probable areas of scarring. No compression deformities. IMPRESSION: 1. Small hiatal hernia probable distal esophagitis. 2. Atypical pneumonia such as Covid-19 pneumonia cannot be excluded. 3. The gallbladder is unremarkable. 4. Nonspecific stranding about the perinephric spaces. 5. Complex cyst upper pole region of the right kidney. Magnetic resonance imaging of the abdomen is advised for further characterization. 6. The appendix is unremarkable. 7. Moderate quantity of stool throughout the colon. 8. No evidence of bowel obstruction. 9. Findings compatible with fecal impaction. 10. Possible cellulitis about the left buttocks region. Clinical (2) Chest pain (3) Hyperglycemia (4) History of diabetes mellitus Eduardo Pena Apr 07, 2020 14:28
--- NOTE | 2020-04-07 14:28 | NUR ---
NURSE NOTES: RN notified Tia of patient's discharge to [facility]. Patient is ready for discharge, all belongings and medications accounted for. Awaiting brick picker.
--- NOTE | 2020-04-07 15:00 | NUR ---
NURSE NOTES: Covid sample sent to lab. Awaiting results. Attempted to notify Tia x2, no response, mailbox is full, unable to leave message. Will follow up with Tia when available.
--- NOTE | 2020-04-07 15:23 | Cardiac Electrophysiology PN ---
Assessment/Plan Assessment/Plan 1. Chest pain. In a patient with glucose of more than 1000 and hypertension. Ruled out for CT protocol. EF 65% 2. Uncontrolled hypertension. On lisinopril 5 mg daily 3. Uncontrolled diabetes with glucose of more than 1000. Further evaluation by Dr. Dinh. On insulin. 4. Cellulitis with lower pelvic lesions. On clindamycin per ID. Subjective Subjective Alert in NAD. No CP or SOB. DC in progress Objective Last 24 Hour Vital Signs Date Time Temp Pulse Resp B/P (MAP) Pulse Ox O2 Delivery O2 Flow Rate FiO2 04/07/20 11:52 97.8 60 17 124/74 (91) 98 04/07/20 09:00 Room Air 04/07/20 08:24 133/78 04/07/20 08:00 97.2 69 17 133/78 (96) 99 04/07/20 00:00 97.7 62 17 107/57 (74) 98 04/06/20 21:06 Room Air 04/06/20 20:34 97.5 59 16 112/62 (79) 98 04/06/20 16:00 97.9 65 16 114/69 (84) 98 Intake and Output 04/06/20 04/07/20 19:00 07:00 Intake Total 1080 ml 450 ml Balance 1080 ml 450 ml Intake Oral 1000 ml 450 ml IV Total 80 ml # Voids 6 4 # Bowel Movements 1 Laboratory Tests Test 04/06/20 16:33 04/06/20 19:26 04/07/20 05:00 04/07/20 11:37 POC Whole Blood Glucose Pending 175 MG/DL (74-106) H Pending White Blood Count 4.8 K/UL (4.8-10.8) Red Blood Count 4.38 M/UL (4.20-5.40) Hemoglobin 12.4 G/DL (12.0-16.0) Hematocrit 37.1 % (37.0-47.0) Mean Corpuscular Volume 85 FL (80-99) Mean Corpuscular Hemoglobin 28.2 PG (27.0-31.0) Mean Corpuscular Hemoglobin Concent 33.3 G/DL (32.0-36.0) Red Cell Distribution Width 13.1 % (11.6-14.8) Platelet Count 158 K/UL (150-450) Mean Platelet Volume 8.0 FL (6.5-10.1) Neutrophils (%) (Auto) 57.8 % (45.0-75.0) Lymphocytes (%) (Auto) 31.5 % (20.0-45.0) Monocytes (%) (Auto) 7.7 % (1.0-10.0) Eosinophils (%) (Auto) 1.5 % (0.0-3.0) Basophils (%) (Auto) 1.5 % (0.0-2.0) Sodium Level 139 MMOL/L (136-145) Potassium Level 4.2 MMOL/L (3.5-5.1) Chloride Level 109 MMOL/L (98-107) H Carbon Dioxide Level 26 MMOL/L (21-32) Anion Gap 4 mmol/L (5-15) L Blood Urea Nitrogen 9 mg/dL (7-18) Creatinine 0.7 MG/DL (0.55-1.30) Estimat Glomerular Filtration Rate > 60 mL/min (>60) Glucose Level 302 MG/DL (74-106) #H Calcium Level 8.1 MG/DL (8.5-10.1) L Microbiology Date/Time Source Procedure Growth Status 04/05/20 11:50 Blood Blood Culture - Preliminary NO GROWTH AFTER 24 HOURS Resulted 04/05/20 11:40 Blood Blood Culture - Preliminary NO GROWTH AFTER 24 HOURS Resulted Objective HEAD AND NECK: Showed no JVD. LUNGS: Clear. CARDIOVASCULAR: Shows regular S1 and S2 with no gallop or murmur. ABDOMEN: Soft. EXTREMITIES: No pitting edema. Hilario Conn MD Apr 07, 2020 15:23
--- NOTE | 2020-04-07 15:43 | NUR ---
NURSE NOTES: Patient discharged to board and care as ordered. Stable. Denies pain or SOB. Patient is AOx4 and able to verbalize needs. Patient has all belongings and all medications from pharmacy. Skin is c/d/i, wound is clean and dry, dressing changed this am by RN. Attempted to notify Tia again regarding discharge without response, will follow up as necessary. No IV access. [facility] by [facility] [address].
--- NOTE | 2020-04-08 12:41 | Discharge Summary ---
Discharge Summary Discharge Summary _ DATE OF ADMISSION: 04/03/2020 DATE OF DISCHARGE: 04/07/2020 DISCHARGED BY: Dr. Ly REASON FOR ADMISSION: 60 years old female with no significant past medical or surgical history, homeless, presented to emergency department by paramedics, complaining of chest discomfort for 1 week. She denied nausea and vomiting. Vital signs revealed tachycardia with heart rate 123, blood pressure was eleva josé miguel 174/90, ECG revealed sinus tachycardia , no acute ischemic changes. Laboratory work-up revealed no leukocytosis , stable hemoglobin and hematocrit Glucose 1069. Anion gap within normal range. BUN 13, creatinine 1.4. Sodium 128, chloride 92. Troponin negative Stable LFT . Urine toxicology screen was negative Urinalysis revealed +4 glucose , no evidence of urinary tract infection. Patient denied ever being on insulin or any medications for diabetes. Physical examination revealed large pelvic abscess which was draining pus. CT scan of the abdomen and pelvis revealed cellulitis left buttock region. Fecal impaction. No evidence of bowel obstruction. Moderate quantity of stool throughout the colon. Appendix unremarkable. No hiatal hernia probable distal esophagitis. Rapid COVID-19 was negative. Patient received insulin. Patient pancultured, received empiric antibiotic and admitted for further management. CONSULTANTS: industrial education teacher Dr. López pulmonary/critical care Dr. Saunders GI specialist Dr. Magana fuel technician Dr. Dinh surgery Dr. Pena [facility] COURSE: Patient admitted to monitored floor. Blood sugar was managed as per fuel technician recommendation with long-acting Levemir, short acting pre-meal NovoLog, and sliding scale of NovoLog as needed. Hypoglycemia protocol was in place. Diabetic diet and diabetic teaching provided. Doses of insulin titrated as per fuel technician based on blood sugar levels. Blood sugar stabilized. Patient will require to stay on insulin after discharge. Patient was encouraged compliance with medication and diet upon discharge. Supplemental oxygen was on board as needed to keep pulse oximetry above 92%. Pulse oximetry remained stable on room air. Blood cultures initially revealed 1 out of 2 staph hominis, repeated blood culture 04/05 were negative . Repeated COVID on 04/07 was negative as well. Patient remained afebrile, no leukocytosis. Initial staph hominis bacteremia was most likely contaminant as per ID specialist. Patient was treated with antibiotic for pelvic cellulitis. Wound care provided as per surgeon recommendation . Bulldozer Mechanic closely followed. Patient experienced chest pain while her glucose was above 1000 and blood pressure was not controlled. Serial troponin were negative. EKG revealed no acute ischemic changes. Patient was ruled out for acute myocardial infarction. Echocardiogram revealed preserved ejection fraction 65%. Mild left ventricular hypertrophy. No evidence of wall motion abnormality. Right ventricular systolic pressure of 33. DVT prophylaxis provided. Blood pressure was managed with MARTHA inhibitor. Blood pressure stabilized, prior to discharge 124/74. Renal parameters and electrolytes were closely monitored. Electrolytes corrected as needed. Sodium stabilized and prior to discharge 139. Creatinine from 1.4 down to 0.7 Patient clinically stabilized and was ready for discharge. FINAL DIAGNOSES: Pelvic cellulitis/ulcer, probable prior abscess New onset of diabetes with severe hyperglycemia Hypertension , uncontrolled Hyponatremia Pain DISCHARGE MEDICATIONS: See Medication Reconciliation list. DISCHARGE INSTRUCTIONS: Patient was discharged to [facility] facility. Follow-up with a primary care provider in 1 week. I have been assigned to dictate discharge summary for this account. I was not involved in the patient's management. Susanna Bradley NP Apr 08, 2020 12:41
--- NOTE | 2020-04-08 15:57 | Cardiology Report ---
APPROVED REPORT EXAM: Two-dimensional and M-mode echocardiogram with Doppler and color Doppler. INDICATION Cardiac Disease: CAD M-Mode DIMENSIONS IVSd0.9 (0.7-1.1cm)Left Atrium (MM)3.3 (1.6-4.0cm) LVDd2.7 (3.5-5.6cm)Aortic Root2.8 (2.0-3.7cm) PWd1.2 (0.7-1.1cm)Aortic Cusp Exc.1.8 (1.5-2.0cm) IVSs1.5 cmEPSS0.3 (>1.0cm) LVDs1.7 (2.5-4.0cm) PWs1.8 cm <Conclusion> Normal left ventricular chamber size, systolic function and wall motion. Left ventricular ejection fraction estimated to be 65 %. Mild left ventricular hypertrophy. RV mildly enlarged No evidence of pericardial effusion. All other cardiac chamber sizes are within normal limits. Focal aortic valve sclerosis with adequate cusp excursion. Thickened mitral valve leaflets with normal excursion. Mitral annulus and aortic root calcification. Pulmonic valve not well visualized. Normal tricuspid valve structure. IVC upper normal in size with mild collapse suggestive of midl increased RA pressure A color flow and spectral Doppler study was performed and revealed: No aortic regurgitation. Trace mitral regurgitation. Mitral diastolic velocities suggest mild left ventricular diastolic dysfunction (Grade I). Trace tricuspid regurgitation. Tricuspid systolic velocities suggests peak right ventricular systolic pressure of 33-38 mmHg. No pulmonic regurgitation present.
--- NOTE | 2020-04-08 17:10 | Cardiology Report ---
APPROVED REPORT EKG Measurement Heart [id number] <Conclusion> Sinus bradycardia Low voltage QRS Possible Inferior infarct, age undetermined t wave abnormality consider ischemia
--- NOTE | 2020-04-08 17:19 | Cardiology Report ---
APPROVED REPORT EKG Measurement Heart [id number] <Conclusion> Sinus tachycardia Possible Left atrial enlargement Left axis deviation Nonspecific T wave abnormality Abnormal ECG
== END 2020-04-07 16:01 | disposition home or self-care (01) | DRG 420 ==
LOC: EDBD 13:29 → EMR 13:58 → ICU 14:45 → EDBEDREQ 15:46 → EDBEDREQSVC 15:46 → EDBEDREQ 15:48 → 2E 20:14 → 3E 04-05 10:31
DX: E11.10 Type 2 diabetes mellitus with ketoacidosis without coma (principal); E87.1 Hypo-osmolality and hyponatremia; L03.317 Cellulitis of buttock; E11.65 Type 2 diabetes mellitus with hyperglycemia; I10 Essential (primary) hypertension; K44.9 Diaphragmatic hernia without obstruction or gangrene; Z59.0 Homelessness; F17.200 Nicotine dependence, unspecified, uncomplicated; R07.9 Chest pain, unspecified; L02.214 Cutaneous abscess of groin
CPT/HCPCS: 36415; 71045; 74177; 80048; 80053; 80076; 80307; 81003; 82009; 82803; 82962; 83690; 83735; 83880; 83930; 84100; 84484; 85007; 85025; 85610; 85651; 85730; 86140; 87040; 87081; 93005; 93306; 96361; 96365; 96366; 96368; 99291; J1815; J7030; S5561; U0002